=== PATIENT | female | born 1940 | race Caucasian/White ===

== ENCOUNTER 2017-09-22 12:08 | Emergency (ER) | payer MEDICARE, OTHER ==
[2017-09-22 12:25] VITALS: BP 155/86
[2017-09-22] MEDS ORDERED: Bacitracin Oint 1 GM U/D Packet TOP ONE (13:05)
--- NOTE | 2017-09-22 13:08 | EDM.PDOC ---
ED HPI GENERAL MEDICAL PROBLEM - General Chief Complaint: Upper Extremity Injury/Pain Stated Complaint: INFECTION ON RIGHT HAND POINTER FINGER Time Seen by Provider: 09/22/17 12:37 Source of Information: Reports: Patient History Limitations: Reports: No Limitations - History of Present Illness INITIAL COMMENTS - FREE TEXT/NARRATIVE: 77 yo female presents to ER with abscess of distill right finger. She was seen in clinic 3 days ago placed on Keflex and has worsened. afebrile. generally feeling well Right Hand Pain Score (Numeric/FACES): 9 - Related Data Allergies Allergy/AdvReac Type Severity Reaction Status Date / Time cat pelt standardized Allergy Sneezing Verified 10/22/15 23:09 allergenic ex [Cat Pelt Std Extract] dextrose [From Metamucil] Allergy Itching Verified 10/23/15 01:41 morphine Allergy Nausea Verified 12/31/15 08:25 polyethylene glycol 3350 Allergy Itching Verified 10/23/15 01:41 [From Miralax] psyllium husk Allergy Itching Verified 10/23/15 01:41 [From Metamucil] psyllium seed Allergy Itching Verified 10/23/15 01:41 [From Metamucil] sucrose [From Metamucil] Allergy Itching Verified 10/23/15 01:41 sulfamethizole Allergy Anxiety Verified 10/22/15 23:09 tramadol Allergy Other Verified 10/23/15 01:41 Home Meds: Home Meds Atenolol 25 mg PO DAILY 10/22/15 [History] Calcium Carbonate [Calcium] 600 mg PO DAILY 10/22/15 [History] Hydrocodone/Acetaminophen [Hydrocodon-Acetaminophn 10-325] 1 tab PO TID [History] Ipratropium [place] 1 dose NASBOTH BID PRN 10/22/15 [History] Levothyroxine Sodium [Synthroid] 137 mcg PO DAILY 10/22/15 [History] Omeprazole 40 mg PO ACBREAKFAST 10/22/15 [History] Potassium Chloride [Klor-Con 8] 10 meq PO DAILY PRN 10/22/15 [History] amLODIPine [Norvasc] 10 mg PO DAILY 10/22/15 [History] atorvaSTATin [Lipitor] 80 mg PO BEDTIME 10/22/15 [History] flavoxATE [flavoxATE HCl] 100 mg PO QID PRN 10/22/15 [History] Cyclobenzaprine [Flexeril] 10 mg PO TID PRN 12/31/15 [History] Clobetasol Propionate 1 strip TP DAILY 09/04/17 [History] Clobetasol [Clobetasol 0.05%] 1 strip TOP BID 09/04/17 [History] Furosemide [Lasix] 20 mg PO DAILY PRN 09/04/17 [History] Hydrochlorothiazide 12.5 ng PO DAILY 09/04/17 [History] Mag Hydrox/Al Hydrox/Simeth [Maalox Maximum Strength Susp] 30 ml PO Q2H PRN 02/12 [History] Magnesium Hydroxide [Milk of Magnesia] 30 ml PO DAILY PRN 09/04/17 [History] Naproxen [Naprosyn] 500 mg PO BID 09/04/17 [History] Nystatin 1 strip TOP QID 09/04/17 [History] Ondansetron HCl [Ondansetron] 4 mg PO Q8H PRN 09/04/17 [History] buPROPion [Wellbutrin SR] 150 mg PO BID 09/04/17 [History] Past Medical History HEENT History: Reports: Impaired Vision Cardiovascular History: Reports: High Cholesterol, Hypertension Other Cardiovascular History: Peripheral edema Respiratory History: Reports: Other (See Below) Other Respiratory History: 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, 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 Genitourinary History: Reports: Chronic Renal Insuffiency, Other (See Below) Other Genitourinary History: Chronic Kidney disease stage II 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: Fibroids, Musculoskeletal History: Reports: Back Pain, Chronic, Neck Pain, Chronic, Osteoarthritis, Other (See Below) Other Musculoskeletal History: right knee pain Psychiatric History: Reports: Addiction, Depression Endocrine/Metabolic History: Reports: Hypothyroidism, Vitamin D Deficiency Hematologic History: Reports: Blood Transfusion(s) - Infectious Disease History Infectious Disease History: Reports: Chicken Pox, Measles, Mumps - Past Surgical History Musculoskeletal Surgical History: Reports: Hip Replacement, Other (See Below) Social & Family History - Family History Family Medical History: Unobtainable - Tobacco Use Smoking Status *Q: Never Smoker - Caffeine Use Caffeine Use: Reports: Coffee - Recreational Drug Use Recreational Drug Use: No Review of Systems - Review of Systems Review Of Systems: See Below Constitutional: Denies: Chills, Fever Respiratory: Denies: Shortness of Breath, Wheezing Cardiovascular: Denies: Chest Pain ED EXAM, GENERAL - Physical Exam Exam: See Below Exam Limited By: No Limitations General Appearance: Alert, WD/WN, No Apparent Distress Respiratory/Chest: No Respiratory Distress Extremities: Other (right distil index finger purulent abscess at base of nail moderate edema, moderate erythema very painful) ED TRAUMA EXTREMITY PROCEDURES - I&D Site: distal right index Skin Prep: Chlorhexidine (Hibiciens) Local Anesthesia: Lidocaine: 1% Plain (digital block) Local Anesthetic Volume: 5cc Area Incised With: 11 Blade Drainage: Purulent, Bloody, Moderate Amount Probed to Break Up Loculations: Yes Packed With: None Sterile Dressing: Adhesive Dressing Complications: No Course - Vital Signs Last Recorded V/S: Last Vital Signs Temp 37.5 C 09/22/17 12:33 Pulse 121 H 09/22/17 12:33 Resp 16 09/22/17 12:33 BP 155/86 H 09/22/17 12:33 Pulse Ox 95 09/22/17 12:33 - Orders/Labs/Meds Meds: Medications Discontinued Medications Generic Name Dose Route Start Last Admin Trade Name Freq PRN Reason Stop Dose Admin Bacitracin 1 dose 09/22/17 13:05 Bacitracin Oint 1 Gm TOP 09/22/17 13:06 ONETIME ONE Lidocaine HCl 5 ml 09/22/17 13:04 Xylocaine-Mpf 1% INJECT 09/22/17 13:05 ONETIME ONE - Re-Assessments/Exams Free Text/Narrative Re-Assessment/Exam: 09/22/17 13:35 tolerated I+D well. will stop clindamycin because of nausea and diarrhea. start Augmentin 875 twice daily for 7 days. follow-up as needed with primary care Departure - Departure Time of Disposition: 13:36 Disposition: Home, Self-Care 01 Condition: Good Clinical Impression: Abscess of finger of right hand - Discharge Information Referrals: Will Cox NP [Primary Care Provider] - Forms: ED Department Discharge Additional Instructions: stop clindamycin and start Augmentin 875 twice daily for 7 days Ibuprofen 600-800 mg every 6 hours as needed for pain ice for pain relief keep dressing in place until tomorrow then soak in warm soapy water and pat dry follow-up with primary care for wound check later this week if not improving
== END 2017-09-22 13:53 | disposition home or self-care (01) ==
LOC: JP.ED 12:08
DX: L02.511 Cutaneous abscess of right hand (principal); E78.00 Pure hypercholesterolemia, unspecified; E03.9 Hypothyroidism, unspecified; I12.9 Hypertensive chronic kidney disease with stage 1 through stage 4 chronic kidney disease, or unspecified chronic kidney disease; N18.9 Chronic kidney disease, unspecified; Z79.899 Other long term (current) drug therapy; Z88.5 Allergy status to narcotic agent; Z88.8 Allergy status to other drugs, medicaments and biological substances
CPT/HCPCS: 26010; 99283-25

== ENCOUNTER 2017-11-07 07:40 | Day surgery (SDC) | payer MEDICARE, OTHER ==
[2017-11-07] MEDS ORDERED: Sodium Chloride 0.9% 1,000 ML IV SCH (08:00)
[2017-11-07] MEDS ORDERED: ceFAZolin 2 GM in Premix Bag 1 BAG IV ONE (08:30)
[2017-11-07] MEDS ORDERED: Propofol 200 MG/20 ML SDV ONE (09:21)
[2017-11-07] MEDS ORDERED: fentaNYL 100 MCG/2 ML SDV ONE (09:22)
--- NOTE | 2017-11-07 10:57 | CR ---
CHEST: Portable CLINICAL HISTORY:Catheter insertion COMPARISON:CT 2017 FINDINGS: There is a left subclavian catheter in place. The tip is in the superior vena cava atrial junction. There is no evidence of pneumothorax. The there is a cyst related to a masslike density in the right perihilar region posteriorly with some central calcification. This is unchanged from prior study and is likely granulomatous in origin. IMPRESSION: Left subclavian catheter in good position No evidence of pneumothorax Persistent right perihilar density similar to the 2017. This is likely granulomatous
[2017-11-07] MEDS ORDERED: Vancomycin 1.3 GM in Sodium Chloride 0.9% 250 ML IV ONE (11:00)
--- NOTE | 2017-11-07 12:20 | OR ---
DATE OF PROCEDURE: 11/07/2017 PROCEDURE: Placement of single-lumen catheter. COMPLICATION: None. STEMHOLE BORER AND TOPPER: None. ANESTHESIA: MAC. INDICATIONS: Requirement for mcfp antibiotic. RISKS: Risks, benefits, alternatives, and limitations including, but not limited to infection, bleeding, and pneumothorax were explained the patient, who wished to proceed. PROCEDURE IN DETAIL: The patient was placed in supine position. The left subclavian vein was accessed on the first pass using a micropuncture kit. This was then exchanged for a 35,000th wire after anesthetizing with lidocaine and subsequent dilation. This was able to be passed without difficulty. Dark blood return was noted. No air. This was then sutured into place. Dressings were applied. Of note, sterile gown, gloves, and other standard equipments were used during this procedure. Constantine Orellana MD /[id number]
[2017-11-07 13:18] VITALS: BP 122/58
== END 2017-11-07 12:50 | disposition home or self-care (01) ==
LOC: JP.SDS 07:40
PROVIDERS: ATTEND Surgery
DX: B99.9 Unspecified infectious disease (principal)
CPT/HCPCS: 36415; 36558; 71045; 82550; 82565; J1642; J2704; J3010; J3370; J7030; J7050; C1894

== ENCOUNTER 2018-08-24 06:09 | Inpatient (IN) | payer MEDICARE ==
[2018-08-24] MEDS ORDERED: Acetaminophen 500 MG Tab PO ONE (06:15)
[2018-08-24] MEDS ORDERED: Gabapentin 300 MG Cap PO ONE (06:15)
[2018-08-24] MEDS ORDERED: Scopolamine 1.5 MG Transdermal Patch TOP SCH (06:15)
[2018-08-24] MEDS ORDERED: Lactated Ringers 1,000 ML IV SCH (06:30)
[2018-08-24] MEDS: Nozin Nasal Sanitizer NASBOTH SCH ×3 (06:32→21:07)
[2018-08-24] MEDS ORDERED: Povidone-Iodine 10% Soln 118.25 ML Bottle ONE (06:43)
[2018-08-24] MEDS ORDERED: fentaNYL 100 MCG/2 ML SDV ONE ×2 (07:18→10:09)
[2018-08-24] MEDS ORDERED: Propofol 200 MG/20 ML SDV ONE ×2 (07:18→09:01)
[2018-08-24] MEDS ORDERED: Midazolam 1 MG/ML 2 ML SDV ONE ×2 (07:18→09:19)
[2018-08-24] MEDS ORDERED: ceFAZolin 2 GM in Premix Bag 1 BAG IV ONE (07:30)
[2018-08-24] MEDS ORDERED: ePHEDrine 50 MG/ML SDV ONE (08:18)
[2018-08-24] MEDS ORDERED: Lactated Ringers 1,000 ML ONE (10:15)
[2018-08-24] MEDS ORDERED: ceFAZolin 1 GM in Sodium Chloride 0.9% 50 ML IV SCH (10:45)
[2018-08-24] MEDS ORDERED: HYDROXYZINE PAMOATE PO PRN ×2 (10:48→12:15)
[2018-08-24] MEDS ORDERED: Magnesium Hydroxide 400 MG/5 ML Susp 30 ML Cup PO PRN (10:48)
[2018-08-24] MEDS ORDERED: Aluminum Hydroxide/Magnesium Hydroxide/Simethicone Susp 30 ML Cup PO PRN (10:48)
[2018-08-24] MEDS ORDERED: FLAVOXATE 100 MG PO PRN (10:48)
[2018-08-24] MEDS ORDERED: FLAVOXATE HCL 100 MG PO PRN (12:15)
[2018-08-24] MEDS: Morphine 2 MG/ML Syringe IVPUSH PRN ×4 (12:20→21:08)
[2018-08-24] MEDS: Ondansetron 4 MG Tab.DIS PO PRN ×2 (12:27→21:08)
[2018-08-24] MEDS: Acetaminophen/HYDROcodone 325-5 MG Tab PO PRN ×4 (12:37→22:33)
[2018-08-24] MEDS ORDERED: fentaNYL/Normal Saline 600 MCG/30 ML PCA Vial IV PRN (12:47)
--- NOTE | 2018-08-24 13:21 | CR ---
Knee 1V or 2V Rt CLINICAL HISTORY: Postop FINDINGS: Patient is status post recent placement of total knee arthroplasty. Components appear well seated. Patient has had previous internal fixation of the left the mid femoral fracture Impression: Recent placement of a total knee arthroplasty
[2018-08-24] MEDS: fentaNYL 100 MCG/2 ML SDV IVPUSH PRN ×2 (13:23→19:25)
[2018-08-24] MEDS: ceFAZolin 1 GM in Premix Bag 1 BAG IV SCH ×2 (14:40→21:45)
[2018-08-24] MEDS: Sodium Chloride 0.9% 1,000 ML IV SCH ×2 (14:45→23:04)
[2018-08-24] MEDS ORDERED: Non-Formulary Medication 1 Each (Atorvastatin [Lipitor] 80 MG) PO SCH ×2 (21:00)
[2018-08-24] MEDS ORDERED: amLODIPine 10 MG Tab PO SCH (21:00)
[2018-08-24] MEDS ORDERED: buPROPion 150 MG Tab.SR PO SCH (21:00)
[2018-08-24] MEDS ORDERED: Nozin Nasal Sanitizer NASBOTH SCH (21:00)
[2018-08-24] MEDS: buPROPion 150 MG Tab.SR PO SCH (21:08)
[2018-08-24] MEDS: atorvaSTATin 20 MG Tab PO SCH (21:08)
[2018-08-24] MEDS: amLODIPine 10 MG Tab PO SCH (21:39)
[2018-08-24] MEDS: hydrOXYzine HCl 25 MG Tab PO PRN (21:51)
[2018-08-24] MEDS ORDERED: Haloperidol Lactate 5 MG/ML SDV IVPUSH ONE (22:19)
[2018-08-25] MEDS: fentaNYL 100 MCG/2 ML SDV IVPUSH PRN ×2 (01:30→07:32)
[2018-08-25] MEDS: Acetaminophen/HYDROcodone 325-5 MG Tab PO PRN (05:54)
[2018-08-25] MEDS: ceFAZolin 1 GM in Premix Bag 1 BAG IV SCH ×2 (05:55→15:08)
[2018-08-25] MEDS: Sodium Chloride 0.9% 1,000 ML IV SCH (07:25)
[2018-08-25] MEDS: Acetaminophen/oxyCODONE 325-5 MG Tab PO PRN ×4 (07:26→21:48)
[2018-08-25] MEDS ORDERED: Non-Formulary Medication 1 Each (Omeprazole [Omeprazole] 40 MG) PO SCH ×2 (07:30)
[2018-08-25] MEDS: Cyclobenzaprine 10 MG Tab PO PRN (07:33)
[2018-08-25] MEDS: Pantoprazole 40 MG Tab.CR PO SCH (07:36)
[2018-08-25] MEDS ORDERED: Atenolol 25 MG Tab PO SCH (09:00)
[2018-08-25] MEDS ORDERED: Enoxaparin 30 MG/0.3 ML Syringe SUBCUT SCH (09:00)
[2018-08-25] MEDS ORDERED: Hydrochlorothiazide 12.5 MG Cap PO SCH (09:00)
[2018-08-25] MEDS ORDERED: Non-Formulary Medication 1 Each (Levothyroxine Sodium [Synthroid] 137 MCG) PO SCH ×2 (09:00)
[2018-08-25] MEDS: Ondansetron 4 MG Tab.DIS PO PRN ×2 (09:10→23:40)
[2018-08-25] MEDS: Nozin Nasal Sanitizer NASBOTH SCH ×2 (09:44→20:13)
--- NOTE | 2018-08-25 10:15 | PCM.SURGPN ---
- General Info Date of Service: 08/25/18 Date of Surgery/Procedure: 08/24/18 POD#: 1 Post-Op Diagnosis: S/P right TKA Admission Diagnosis/Problem: Osteoarthritis - Review of Systems General: Reports: No Symptoms HEENT: Reports: No Symptoms Pulmonary: Reports: No Symptoms Cardiovascular: Reports: No Symptoms Systems Review Comment:: Confused and disoriented last night, much improved this am. Pain fairly well controlled, will likely be difficult to manage. - Patient Data Vitals - Most Recent: Last Vital Signs Temp 37.1 C 08/25/18 07:44 Pulse 73 08/25/18 07:44 Resp 16 08/25/18 07:44 BP 129/55 L 08/25/18 07:44 Pulse Ox 93 L 08/25/18 07:44 Weight - Most Recent: 64.773 kg I&O - Last 24 Hours: Intake & Output 08/24/18 08/25/18 08/25/18 22:59 06:59 14:59 Intake Total 2000 1407 Output Total 550 800 Balance 1451 607 Lab Results Last 24 Hrs: Laboratory Results - last 24 hr 08/25/18 Range/Units 05:00 WBC 8.3 (4.5-11.0) K/uL RBC 3.86 (3.30-5.50) M/uL Hgb 9.4 L D (12.0-15.0) g/dL Hct 30.1 L (36.0-48.0) % MCV 78 L (80-98) fL MCH 24 L (27-31) pg MCHC 31 L (32-36) % Plt Count 220 (150-400) K/uL Med Orders - Current: Current Medications Acetaminophen (Tylenol) 650 mg PO Q4H PRN PRN Reason: Pain/Fever Hydrocodone Bitart/Acetaminophen ([place] 325-5 Mg) 1 tab PO Q3H PRN PRN Reason: Pain (mild 1-3) Last Admin: 08/25/18 05:54 Dose: 1 tab Al Hydroxide/Mg Hydroxide (Mag-Al Plus) 30 ml PO Q2H PRN PRN Reason: Indigestion Amlodipine Besylate (Norvasc) 10 mg PO BEDTIME [facility] Last Admin: 08/24/18 21:39 Dose: 10 mg Atenolol (Tenormin) 25 mg PO DAILY [facility] Atorvastatin Calcium (Lipitor) 80 mg PO BEDTIME [facility] Last Admin: 08/24/18 21:08 Dose: 80 mg Bandage/Support Products ( Nasal Penciller) 1 applic NASBOTH BID [facility] Stop: 08/31/18 21:01 Last Admin: 08/25/18 09:44 Dose: 1 swab Bupropion HCl (Wellbutrin Sr) 150 mg PO BID [facility] Last Admin: 08/24/18 21:08 Dose: 150 mg Cyclobenzaprine HCl (Flexeril) 5 mg PO TID PRN PRN Reason: Spasms Last Admin: 08/25/18 07:33 Dose: 5 mg Enoxaparin Sodium (Lovenox) 30 mg SUBCUT DAILY [facility] Fentanyl (Sublimaze) 50 mcg IVPUSH Q6H PRN PRN Reason: Pain (severe 7-10) Last Admin: 08/25/18 07:32 Dose: 50 mcg Fentanyl Citrate (Fentanyl In Ns 20 Mcg/Ml 30 Ml Plastic Parts Fabricator) 0 mcg IV ASDIRECTED PRN; Protocol PRN Reason: Pain Flavoxate HCl (Flavoxate Hcl) 100 mg PO QID PRN PRN Reason: PAIN Hydrochlorothiazide (Hydrochlorothiazide) 12.5 mg PO DAILY [facility] Hydroxyzine HCl (Atarax) 25 mg PO QID PRN PRN Reason: ITCH Last Admin: 08/24/18 21:51 Dose: 25 mg Lactated Ringer's (Ringers, Lactated) 1,000 mls @ 75 mls/hr IV ASDIRECTED [facility] Last Admin: 08/24/18 07:29 Dose: 75 mls/hr Sodium Chloride (Normal Saline) 1,000 mls @ 125 mls/hr IV ASDIRECTED [facility] Last Admin: 08/25/18 07:25 Dose: 125 mls/hr Cefazolin Sodium/Dextrose 1 gm (/ Premix) 50 mls @ 100 mls/hr IV Q8H [facility] Stop: 08/25/18 14:59 Last Admin: 08/25/18 05:55 Dose: 100 mls/hr Levothyroxine Sodium 112 mcg/ (Levothyroxine Sodium 25 mcg) 137 mcg PO ACBREAKFAST [facility] Last Admin: 08/25/18 07:35 Dose: 137 mcg Magnesium Hydroxide (Milk Of Magnesia) 30 ml PO DAILY PRN PRN Reason: Constipation Morphine Sulfate (Morphine) 2 mg IVPUSH Q1H PRN PRN Reason: Pain (severe 7-10) Last Admin: 08/24/18 21:08 Dose: 2 mg Ondansetron HCl (Zofran Odt) 4 mg PO Q8H PRN PRN Reason: Nausea Last Admin: 08/25/18 09:10 Dose: 4 mg Oxycodone/Acetaminophen (Percocet 325-5 Mg) 0 tab PO Q6H PRN PRN Reason: Pain Last Admin: 08/25/18 09:38 Dose: 2 tab Pantoprazole Sodium (Protonix) 40 mg PO ACBREAKFAST [facility] Last Admin: 08/25/18 07:36 Dose: 40 mg Scopolamine (Transderm-Scop) 1.5 mg TOP Q72H [facility] Stop: 08/27/18 06:00 Last Admin: 08/24/18 06:31 Dose: 1.5 mg Discontinued Medications Acetaminophen (Tylenol Extra Strength) 1,000 mg PO ONETIME ONE Stop: 08/24/18 06:16 Last Admin: 08/24/18 06:32 Dose: 1,000 mg Amlodipine Besylate (Norvasc) 10 mg PO BEDTIME [facility] Atenolol (Tenormin) 25 mg PO DAILY [facility] Bandage/Support Products ( Nasal Penciller) 1 applic NASBOTH BID [facility] Last Admin: 08/24/18 12:44 Dose: Not Given Bandage/Support Products ( Nasal Penciller) 1 applic NASBOTH BID [facility] Stop: 08/31/18 21:01 Bupropion HCl (Wellbutrin Sr) 150 mg PO BID [facility] Enoxaparin Sodium (Lovenox) 30 mg SUBCUT DAILY [facility] Ephedrine Sulfate (Ephedrine Sulfate) Confirm Administered Dose 50 mg .ROUTE .STK-MED ONE Stop: 08/24/18 08:19 Fentanyl (Sublimaze) Confirm Administered Dose 100 mcg .ROUTE .STK-MED ONE Stop: 08/24/18 07:19 Fentanyl (Sublimaze) Confirm Administered Dose 100 mcg .ROUTE .STK-MED ONE Stop: 08/24/18 10:10 Gabapentin (Neurontin) 300 mg PO ONETIME ONE Stop: 08/24/18 06:16 Last Admin: 08/24/18 06:31 Dose: 300 mg Haloperidol Lactate (Haldol) 2 mg IVPUSH ONETIME ONE Stop: 08/24/18 22:20 Last Admin: 08/24/18 22:33 Dose: 2 mg Hydrochlorothiazide (Hydrochlorothiazide) 12.5 mg PO DAILY [facility] Cefazolin Sodium/Dextrose 2 gm (/ Premix) 50 mls @ 100 mls/hr IV ONETIME ONE Stop: 08/24/18 07:59 Last Admin: 08/24/18 07:37 Dose: 100 mls/hr Lactated Ringer's (Ringers, Lactated) Confirm Administered Dose 1,000 mls @ as directed .ROUTE .STK-MED ONE Stop: 08/24/18 10:16 Cefazolin Sodium 1 gm/ Sodium (Chloride) 50 mls @ 200 mls/hr IV Q8H [facility] Stop: 08/25/18 10:59 Last Admin: 08/24/18 14:35 Dose: Not Given Midazolam HCl (Versed 1 Mg/Ml) Confirm Administered Dose 2 mg .ROUTE .STK-MED ONE Stop: 08/24/18 07:19 Midazolam HCl (Versed 1 Mg/Ml) Confirm Administered Dose 2 mg .ROUTE .STK-MED ONE Stop: 08/24/18 09:20 Non-Formulary Medication (Atorvastatin [Lipitor]) 80 mg PO BEDTIME [facility] Non-Formulary Medication (Flavoxate [Flavoxate Hcl]) 100 mg PO QID PRN PRN Reason: Pain Non-Formulary Medication (Hydroxyzine Pamoate [Vistaril]) 1 cap PO QID PRN PRN Reason: Itching Non-Formulary Medication (Levothyroxine Sodium [Synthroid]) 137 mcg PO DAILY [facility] Non-Formulary Medication (Omeprazole [Omeprazole]) 40 mg PO ACBREAKFAST [facility] Flavoxate Hcl 100 Mg 100 mg PO QID PRN PRN Reason: Pain Povidone Iodine (Betadine 10% Soln) Confirm Administered Dose 1 ml .ROUTE .STK- MED ONE Stop: 08/24/18 06:44 Last Admin: 08/24/18 10:00 Dose: 1 ml Propofol (Diprivan 20 Ml) Confirm Administered Dose 200 mg .ROUTE .STK-MED ONE Stop: 08/24/18 07:19 Propofol (Diprivan 20 Ml) Confirm Administered Dose 200 mg .ROUTE .STK-MED ONE Stop: 08/24/18 09:02 - Exam Wound/Incisions: Dressing Dry and Intact General: Alert, Oriented, Cooperative HEENT: Pupils Equal Neck: Supple Lungs: Clear to Auscultation, Normal Respiratory Effort Cardiovascular: Regular Rate, Regular Rhythm Neurological: No New Focal Deficit Psy/Mental Status: Alert, Normal Affect, Normal Mood Physical Findings Comment:: Lucid this am. - Problem List & Annotations (1) Anemia due to acute blood loss SNOMED Code(s): 722266732 Code(s): D62 - ACUTE POSTHEMORRHAGIC ANEMIA Status: Acute Current Visit: Yes Annotation/Comment:: secondary to surgical procedure (2) Status post total right knee replacement SNOMED Code(s): 3912980031808 Code(s): Z96.651 - PRESENCE OF RIGHT ARTIFICIAL KNEE JOINT Status: Acute Current Visit: Yes (3) At risk for falls SNOMED Code(s): 631578793 Code(s): Z91.81 - HISTORY OF FALLING Status: Chronic Current Visit: No (4) Primary osteoarthritis of right knee SNOMED Code(s): 057810126342737, 476904191932762 Code(s): M17.11 - UNILATERAL PRIMARY OSTEOARTHRITIS, RIGHT KNEE Status: Chronic Current Visit: No (5) Acute narcotic intoxication with delirium SNOMED Code(s): 794957613, 560964485 Code(s): F11.921 - OPIOID USE, UNSPECIFIED WITH INTOXICATION DELIRIUM Status: Acute Current Visit: Yes - Problem List Review Problem List Initiated/Reviewed/Updated: Yes - My Orders Last 24 Hours: Active Orders 24 hr Category Date Time Status Patient Status [ADT] Routine ADT 08/24/18 10:43 Active Ambulate [RC] PER UNIT ROUTINE Care 08/24/18 10:43 Active Antiembolic Devices [RC] .Routine Care 08/24/18 10:43 Active Head of Bed Elevation [RC] ASDIRECTED Care 08/24/18 10:43 Active Intake and Output [RC] PER UNIT ROUTINE Care 08/24/18 10:43 Active Neurovascular Check [RC] BID Care 08/24/18 10:43 Active Notify Provider Vital Signs [RC] ASDIRECTED Care 08/24/18 10:43 Active Oxygen Therapy [RC] PRN Care 08/24/18 10:43 Active Pneumonia Education [RC] UPON Care 08/24/18 10:43 Active Pulse Oximetry [RC] INTERMITTENT Care 08/24/18 10:43 Active RT Incentive Spirometry [RC] Q1HWA Care 08/24/18 10:43 Active Up to Chair [RC] QID Care 08/24/18 10:43 Active VTE/DVT Education [RC] Click to Edit Care 08/24/18 10:43 Active Vital Signs [RC] Q4H Care 08/24/18 10:43 Active Wound Care [RC] Q12H Care 08/24/18 10:43 Active Consult to Occupational Therapy [OT Evaluation and Cons 08/24/18 10:52 Active Treatment] [CONS] Routine Consult to Physical Therapy [PT Evaluation and Cons 08/24/18 10:53 Active Treatment] [CONS] Routine PT Evaluation and Treatment [CONS] Routine Cons 08/24/18 10:43 Active Regular Diet [DIET] Diet 08/24/18 Dinner Active CBC W/O DIFF,HEMOGRAM [HEME] AM Lab 08/26/18 05:11 Ordered COMPREHENSIVE METABOLIC PN,CMP [CHEM] AM Lab 08/26/18 05:11 Ordered Acetaminophen [Tylenol] Med 08/24/18 10:43 Active 650 mg PO Q4H PRN Acetaminophen/HYDROcodone [[place] 325-5 MG] Med 08/24/18 10:43 Active 1 tab PO Q3H PRN Acetaminophen/oxyCODONE [Percocet 325-5 MG] Med 08/24/18 10:50 Active See Dose Instructions PO Q6H PRN Alum Hydrox/Mag Hydrox/Simeth [Mag-Al Plus] Med 08/24/18 10:48 Active 30 ml PO Q2H PRN Atenolol [Tenormin] Med 08/25/18 09:00 Active 25 mg PO DAILY Cyclobenzaprine [Flexeril] Med 08/24/18 10:48 Active 5 mg PO TID PRN Enoxaparin [Lovenox] Med 08/25/18 09:00 Active 30 mg SUBCUT DAILY Levothyroxine Med 08/25/18 07:30 Active 137 mcg PO ACBREAKFAST Magnesium Hydroxide [Milk of Magnesia] Med 08/24/18 10:48 Active 30 ml PO DAILY PRN Morphine Med 08/24/18 10:55 Active 2 mg IVPUSH Q1H PRN Nozin [ Nasal Penciller] Med 08/24/18 21:00 Active 1 applic NASBOTH BID Ondansetron [Zofran ODT] Med 08/24/18 10:48 Active 4 mg PO Q8H PRN Pantoprazole [ProTONIX] Med 08/25/18 07:30 Active 40 mg PO ACBREAKFAST Sodium Chloride 0.9% [Normal Saline] 1,000 ml Med 08/24/18 10:45 Active IV ASDIRECTED amLODIPine [Norvasc] Med 08/24/18 21:00 Active 10 mg PO BEDTIME atorvaSTATin [Lipitor] Med 08/24/18 21:00 Active 80 mg PO BEDTIME buPROPion [Wellbutrin SR] Med 08/24/18 21:00 Active 150 mg PO BID ceFAZolin [Ancef] 1 gm Med 08/24/18 14:30 Active Premix Bag 1 bag IV Q8H fentaNYL [Sublimaze] Med 08/24/18 12:37 Active 50 mcg IVPUSH Q6H PRN fentaNYL/Normal Saline [fentaNYL in NS 20 MCG/ML 30 ML Med 08/24/18 12:47 Active CONCRETE PILE [employer]IVER OPERATOR] 0 mcg IV ASDIRECTED PRN flavoxATE [flavoxATE HCl] Med 08/24/18 17:29 Active 100 mg PO QID PRN hydrOXYzine HCl [Atarax] Med 08/24/18 13:25 Active 25 mg PO QID PRN hydroCHLOROthiazide Med 08/25/18 09:00 Active 12.5 mg PO DAILY Antiembolic Hose [OM.PC] Per Unit Routine Oth 08/24/18 10:43 Ordered DME for Inpatients [OM.PC] Routine Oth 08/24/18 10:43 Ordered DVT/VTE Prophylaxis Reflex [OM.PC] Routine Oth 08/24/18 10:43 Ordered Ice Therapy [OM.PC] Per Unit Routine Oth 08/24/18 10:43 Ordered Oral Care [OM.PC] Routine Oth 08/24/18 10:43 Ordered Weight bearing status [OM.PC] Routine Oth 08/24/18 10:43 Ordered Resuscitation Status Routine Resus Stat 08/24/18 10:43 Ordered Medication Orders Acetaminophen (Tylenol) 650 mg PO Q4H PRN PRN Reason: Pain/Fever Hydrocodone Bitart/Acetaminophen ([place] 325-5 Mg) 1 tab PO Q3H PRN PRN Reason: Pain (mild 1-3) Last Admin: 08/25/18 05:54 Dose: 1 tab Admin: 08/24/18 22:33 Dose: 1 tab Admin: 08/24/18 19:23 Dose: 1 tab Admin: 08/24/18 15:52 Dose: 1 tab Admin: 08/24/18 12:37 Dose: 1 tab Al Hydroxide/Mg Hydroxide (Mag-Al Plus) 30 ml PO Q2H PRN PRN Reason: Indigestion Amlodipine Besylate (Norvasc) 10 mg PO BEDTIME [facility] Last Admin: 08/24/18 21:39 Dose: 10 mg Atenolol (Tenormin) 25 mg PO DAILY [facility] Atorvastatin Calcium (Lipitor) 80 mg PO BEDTIME [facility] Last Admin: 08/24/18 21:08 Dose: 80 mg Bandage/Support Products ( Nasal Penciller) 1 applic NASBOTH BID [facility] Stop: 08/31/18 21:01 Last Admin: 08/25/18 09:44 Dose: 1 swab Admin: 08/24/18 21:07 Dose: 1 swab Bupropion HCl (Wellbutrin Sr) 150 mg PO BID [facility] Last Admin: 08/24/18 21:08 Dose: 150 mg Cyclobenzaprine HCl (Flexeril) 5 mg PO TID PRN PRN Reason: Spasms Last Admin: 08/25/18 07:33 Dose: 5 mg Enoxaparin Sodium (Lovenox) 30 mg SUBCUT DAILY [facility] Fentanyl (Sublimaze) 50 mcg IVPUSH Q6H PRN PRN Reason: Pain (severe 7-10) Last Admin: 08/25/18 07:32 Dose: 50 mcg Admin: 08/25/18 01:30 Dose: 50 mcg Admin: 08/24/18 19:25 Dose: 50 mcg Admin: 08/24/18 13:23 Dose: 50 mcg Fentanyl Citrate (Fentanyl In Ns 20 Mcg/Ml 30 Ml [employer] Parts Fabricator) 0 mcg IV ASDIRECTED PRN; Protocol PRN Reason: Pain Flavoxate HCl (Flavoxate Hcl) 100 mg PO QID PRN PRN Reason: PAIN Hydrochlorothiazide (Hydrochlorothiazide) 12.5 mg PO DAILY [facility] Hydroxyzine HCl (Atarax) 25 mg PO QID PRN PRN Reason: ITCH Last Admin: 08/24/18 21:51 Dose: 25 mg Lactated Ringer's (Ringers, Lactated) 1,000 mls @ 75 mls/hr IV ASDIRECTED [facility] Last Admin: 08/24/18 07:29 Dose: 75 mls/hr Sodium Chloride (Normal Saline) 1,000 mls @ 125 mls/hr IV ASDIRECTED [facility] Last Admin: 08/25/18 07:25 Dose: 125 mls/hr Infusion: 08/25/18 07:04 Dose: 125 mls/hr Admin: 08/24/18 23:04 Dose: 125 mls/hr Infusion: 08/24/18 22:45 Dose: 125 mls/hr Admin: 08/24/18 14:45 Dose: 125 mls/hr Cefazolin Sodium/Dextrose 1 gm (/ Premix) 50 mls @ 100 mls/hr IV Q8H [facility] Stop: 08/25/18 14:59 Last Admin: 08/25/18 05:55 Dose: 100 mls/hr Infusion: 08/24/18 22:15 Dose: 100 mls/hr Admin: 08/24/18 21:45 Dose: 100 mls/hr Infusion: 08/24/18 15:10 Dose: 100 mls/hr Admin: 08/24/18 14:40 Dose: 100 mls/hr Levothyroxine Sodium 112 mcg/ (Levothyroxine Sodium 25 mcg) 137 mcg PO ACBREAKFAST [facility] Last Admin: 08/25/18 07:35 Dose: 137 mcg Magnesium Hydroxide (Milk Of Magnesia) 30 ml PO DAILY PRN PRN Reason: Constipation Morphine Sulfate (Morphine) 2 mg IVPUSH Q1H PRN PRN Reason: Pain (severe 7-10) Last Admin: 08/24/18 21:08 Dose: 2 mg Admin: 08/24/18 17:09 Dose: 2 mg Admin: 08/24/18 14:36 Dose: 2 mg Admin: 08/24/18 12:20 Dose: 2 mg Ondansetron HCl (Zofran Odt) 4 mg PO Q8H PRN PRN Reason: Nausea Last Admin: 08/25/18 09:10 Dose: 4 mg Admin: 08/24/18 21:08 Dose: 4 mg Admin: 08/24/18 12:27 Dose: 4 mg Oxycodone/Acetaminophen (Percocet 325-5 Mg) 0 tab PO Q6H PRN PRN Reason: Pain Last Admin: 08/25/18 09:38 Dose: 2 tab Pantoprazole Sodium (Protonix) 40 mg PO ACBREAKFAST [facility] Last Admin: 08/25/18 07:36 Dose: 40 mg Scopolamine (Transderm-Scop) 1.5 mg TOP Q72H [facility] Stop: 08/27/18 06:00 Last Admin: 08/24/18 06:31 Dose: 1.5 mg - Assessment Assessment (Free Text/Narrative):: Difficulty with pain control yesterday and became disoriented and somewhat combative last night. Treated with single dose of [place] this am. - Plan Plan (Free Text/Narrative):: Start PT/OT. Adjust meds as needed. Dressing change tomorrow. Watch H/H and check labs in am.
[2018-08-25] MEDS: Enoxaparin 30 MG/0.3 ML Syringe SUBCUT SCH (11:38)
[2018-08-25] MEDS: Hydrochlorothiazide 12.5 MG Cap PO SCH (11:39)
[2018-08-25] MEDS: Atenolol 25 MG Tab PO SCH (11:39)
[2018-08-25] MEDS: buPROPion 150 MG Tab.SR PO SCH ×2 (11:39→20:13)
[2018-08-25] MEDS: Docusate Sodium 100 MG Cap PO SCH (20:13)
[2018-08-25] MEDS: atorvaSTATin 20 MG Tab PO SCH (20:14)
[2018-08-25] MEDS: amLODIPine 10 MG Tab PO SCH (20:15)
[2018-08-25] MEDS: hydrOXYzine HCl 25 MG Tab PO PRN (21:49)
[2018-08-26] MEDS: Acetaminophen/oxyCODONE 325-5 MG Tab PO PRN ×3 (07:23→20:41)
[2018-08-26] MEDS: Pantoprazole 40 MG Tab.CR PO SCH (07:25)
[2018-08-26] MEDS: Cyclobenzaprine 10 MG Tab PO PRN (07:27)
[2018-08-26] MEDS: Docusate Sodium 100 MG Cap PO SCH ×2 (08:46→20:34)
[2018-08-26] MEDS: Hydrochlorothiazide 12.5 MG Cap PO SCH (08:46)
[2018-08-26] MEDS: Nozin Nasal Sanitizer NASBOTH SCH ×2 (08:47→20:34)
[2018-08-26] MEDS: buPROPion 150 MG Tab.SR PO SCH ×2 (08:47→20:36)
[2018-08-26] MEDS: Enoxaparin 30 MG/0.3 ML Syringe SUBCUT SCH (08:47)
[2018-08-26] MEDS: Atenolol 25 MG Tab PO SCH (08:48)
[2018-08-26] MEDS: Potassium Chloride 20 MEQ Tab.ER PO SCH ×2 (08:48→16:26)
--- NOTE | 2018-08-26 13:33 | OR ---
DATE OF PROCEDURE: 08/24/2018 PREOPERATIVE DIAGNOSIS: End-stage osteoarthritis, right knee, with valgus instability. POSTOPERATIVE DIAGNOSIS: End-stage osteoarthritis, right knee, with valgus instability. PROCEDURE: Right total knee arthroplasty using Feliz LCCK components with a size 3 stemmed tibia, size F short-stem femur, 20 mm constrained poly, and a 32-mm patella. SURGEON: Lokesh Hope MD ANESTHESIA: Spinal with sedation. INDICATIONS: Becca Tenorio is a 78-year-old female with history of progressive pain and deformity of her right knee over the past several years. She has significant valgus with valgus laxity. She has failed conservative treatment and has difficulty with activities of daily living and short distance walking. She now presents for right total knee arthroplasty. The risks, benefits, and potential complications of the procedure were discussed. DESCRIPTION OF PROCEDURE: After adequate anesthesia was obtained, the patient was placed supine with a tourniquet about the right upper thigh. The right leg was prepped and draped in a sterile fashion. Leg was exsanguinated and tourniquet inflated to 250 mmHg. A longitudinal incision was made midline over the patella and carried down through the subcutaneous tissues. Medial parapatellar arthrotomy was performed. Small effusion was present. Portion of the fat pad was excised. Examination reveals significant deformity with bone loss of the lateral tibial plateau. Intramedullary canal of the femur was entered due to her previous hip fracture and hardware in place, a long intramedullary guide was not utilized. Distal femoral cut was made. The femur was sized, and the distal femoral jig was then secured. Anterior, posterior, and chamfer cuts were then made. An intercondylar notch cut was then made for a constrained component. The trial femur was placed with good fit. Attention was then turned to the tibia. Intramedullary canal was drilled. Reamer was left in place, and the proximal cutting jig was secured removing approximately 2 mm from the lateral plateau. Remaining meniscus was excised. The tibia was sized to a 4 component. The posterior aspect of the patella was resected and sized to a 32 mm. Trial tibial component was placed with a 14-mm insert providing good balance and full extension. The trials were removed. The knee was then thoroughly irrigated with pulse lavage. Components were cemented in place and excess cement was removed. The knee was held in full extension with trial insert. The final polyethylene was inserted. On attempting to secure the polyethylene with a locking screw, it was discovered that the stem had become dislodged from the tibial tray and a small amount of bone cement was intervening preventing placement of the locking screw. Due to the significant stress placed on the tibial tray-polyethylene couple with the constrained polyethylene, decision was made to proceed with revision of this. Using a combination of osteotomes, the tibial component was removed along with the cement in the tibial metaphysis and the dislodged stem. The canal was reamed once again. The last reamer was left in place and the tibia was recut, removing just a few more millimeters. This was then downsized to a size-3 tibia. Offset stem was utilized and a trial was placed, which provided good coverage. This resulted in going up to a 20-mm polyethylene. tibial trial were removed. This was thoroughly irrigated. The new tibial stem and tray were cemented in place. Excess cement was removed. The knee was held in full extension with a trial insert. The 20-mm trial was then switched out for the polyethylene insert, and the locking screw was placed. and tightened with the torque wrench. The knee was taken through range of motion. It showed excellent extension and flexion easily to 125 degrees with good tracking of the patella. Knee was thoroughly irrigated with the pulse lavage and a dilute solution of Betadine. Knee was then closed with # 1 Ethibond in interrupted fashion, in the capsular layer 2-0 Vicryl and a running 3-0 Monocryl on the skin. Steri-Strips were applied. Light compressive dressing was then placed. The patient tolerated the procedure well. She was taken from the operating room in a stable condition. Lokesh Hope MD /[id number] JOHN
--- NOTE | 2018-08-26 15:50 | PCM.SURGPN ---
- General Info Date of Service: 08/26/18 Date of Surgery/Procedure: 08/23/18 POD#: 2 Post-Op Diagnosis: S/P right total knee arthroplasty Functional Status: Reports: Ambulating, Urinating - Review of Systems General: Reports: No Symptoms HEENT: Reports: No Symptoms Pulmonary: Reports: No Symptoms Cardiovascular: Reports: No Symptoms Gastrointestinal: Reports: No Symptoms Genitourinary: Reports: No Symptoms Skin: Reports: No Symptoms Systems Review Comment:: Much better night last night, up with PT and doing fairly well, still needing help with transfers in/out of bed and chairs. Pain reasonably well controlled with oral meds. - Patient Data Vitals - Most Recent: Last Vital Signs Temp 36.8 C 08/26/18 14:47 Pulse 75 08/26/18 14:47 Resp 18 08/26/18 14:47 BP 117/51 L 08/26/18 14:47 Pulse Ox 94 L 08/26/18 14:47 Weight - Most Recent: 64.773 kg I&O - Last 24 Hours: Intake & Output 08/26/18 08/26/18 08/26/18 06:59 14:59 22:59 Intake Total 640 Output Total 1999 250 50 Balance -1999 390 -50 Lab Results Last 24 Hrs: Laboratory Results - last 24 hr 08/26/18 08/26/18 Range/Units 05:11 05:11 WBC 8.9 (4.5-11.0) K/uL RBC 3.68 (3.30-5.50) M/uL Hgb 9.1 L (12.0-15.0) g/dL Hct 28.7 L (36.0-48.0) % MCV 78 L (80-98) fL MCH 25 L (27-31) pg MCHC 32 (32-36) % Plt Count 219 (150-400) K/uL Sodium 133 L (140-148) mmol/L Potassium 2.9 L* (3.6-5.2) mmol/L Chloride 98 L (100-108) mmol/L Carbon Dioxide 28 (21-32) mmol/L Anion Gap 9.9 (5.0-14.0) mmol/L BUN 11 D (7-18) mg/dL Creatinine 0.7 (0.6-1.0) mg/dL Est Cr Clr Drug Dosing 49.23 mL/min Estimated GFR (MDRD) > 60 (>60) Glucose 115 H (74-106) mg/dL Calcium 8.4 L (8.5-10.1) mg/dL Total Bilirubin 0.5 (0.2-1.0) mg/dL AST 23 (15-37) U/L ALT 21 (12-78) U/L Alkaline Phosphatase 66 (46-116) U/L Total Protein 5.7 L (6.4-8.2) g/dL Albumin 2.5 L (3.4-5.0) g/dL Globulin 3.2 (2.3-3.5) g/dL Albumin/Globulin Ratio 0.8 L (1.2-2.2) Med Orders - Current: Current Medications Acetaminophen (Tylenol) 650 mg PO Q4H PRN PRN Reason: Pain/Fever Hydrocodone Bitart/Acetaminophen ([place] 325-5 Mg) 1 tab PO Q3H PRN PRN Reason: Pain (mild 1-3) Last Admin: 08/25/18 05:54 Dose: 1 tab Al Hydroxide/Mg Hydroxide (Mag-Al Plus) 30 ml PO Q2H PRN PRN Reason: Indigestion Amlodipine Besylate (Norvasc) 10 mg PO BEDTIME [facility] Last Admin: 08/25/18 20:15 Dose: 10 mg Atenolol (Tenormin) 25 mg PO DAILY [facility] Last Admin: 08/26/18 08:48 Dose: 25 mg Atorvastatin Calcium (Lipitor) 80 mg PO BEDTIME [facility] Last Admin: 08/25/18 20:14 Dose: 80 mg Bandage/Support Products ( Nasal Pain Medicine Physician) 1 applic NASBOTH BID [facility] Stop: 08/31/18 21:01 Last Admin: 08/26/18 08:47 Dose: 1 swab Bupropion HCl (Wellbutrin Sr) 150 mg PO BID [facility] Last Admin: 08/26/18 08:47 Dose: 150 mg Cyclobenzaprine HCl (Flexeril) 5 mg PO TID PRN PRN Reason: Spasms Last Admin: 08/26/18 07:27 Dose: 5 mg Docusate Sodium (Colace) 100 mg PO BID [facility] Last Admin: 08/26/18 08:46 Dose: 100 mg Enoxaparin Sodium (Lovenox) 30 mg SUBCUT DAILY [facility] Last Admin: 08/26/18 08:47 Dose: 30 mg Fentanyl (Sublimaze) 50 mcg IVPUSH Q6H PRN PRN Reason: Pain (severe 7-10) Last Admin: 08/25/18 07:32 Dose: 50 mcg Fentanyl Citrate (Fentanyl In Ns 20 Mcg/Ml 30 Ml Election Supervisor) 0 mcg IV ASDIRECTED PRN; Protocol PRN Reason: Pain Flavoxate HCl (Flavoxate Hcl) 100 mg PO QID PRN PRN Reason: PAIN Hydrochlorothiazide (Hydrochlorothiazide) 12.5 mg PO DAILY [facility] Last Admin: 08/26/18 08:46 Dose: 12.5 mg Hydroxyzine HCl (Atarax) 25 mg PO QID PRN PRN Reason: ITCH Last Admin: 08/25/18 21:49 Dose: 25 mg Levothyroxine Sodium 112 mcg/ (Levothyroxine Sodium 25 mcg) 137 mcg PO ACBREAKFAST [facility] Last Admin: 08/26/18 07:24 Dose: 137 mcg Magnesium Hydroxide (Milk Of Magnesia) 30 ml PO DAILY PRN PRN Reason: Constipation Morphine Sulfate (Morphine) 2 mg IVPUSH Q1H PRN PRN Reason: Pain (severe 7-10) Last Admin: 08/24/18 21:08 Dose: 2 mg Ondansetron HCl (Zofran Odt) 4 mg PO Q8H PRN PRN Reason: Nausea Last Admin: 08/25/18 23:40 Dose: 4 mg Oxycodone/Acetaminophen (Percocet 325-5 Mg) 0 tab PO Q6H PRN PRN Reason: Pain Last Admin: 08/26/18 14:41 Dose: 1 tab Pantoprazole Sodium (Protonix) 40 mg PO ACBREAKFAST [facility] Last Admin: 08/26/18 07:25 Dose: 40 mg Potassium Chloride (Klor-Con M20) 20 meq PO BIDMEALS [facility] Last Admin: 08/26/18 08:48 Dose: 20 meq Scopolamine (Transderm-Scop) 1.5 mg TOP Q72H [facility] Stop: 08/27/18 06:00 Last Admin: 08/24/18 06:31 Dose: 1.5 mg Discontinued Medications Acetaminophen (Tylenol Extra Strength) 1,000 mg PO ONETIME ONE Stop: 08/24/18 06:16 Last Admin: 08/24/18 06:32 Dose: 1,000 mg Amlodipine Besylate (Norvasc) 10 mg PO BEDTIME [facility] Atenolol (Tenormin) 25 mg PO DAILY [facility] Bandage/Support Products ( Nasal Pain Medicine Physician) 1 applic NASBOTH BID [facility] Last Admin: 08/24/18 12:44 Dose: Not Given Bandage/Support Products ( Nasal Pain Medicine Physician) 1 applic NASBOTH BID [facility] Stop: 08/31/18 21:01 Bupropion HCl (Wellbutrin Sr) 150 mg PO BID [facility] Enoxaparin Sodium (Lovenox) 30 mg SUBCUT DAILY [facility] Ephedrine Sulfate (Ephedrine Sulfate) Confirm Administered Dose 50 mg .ROUTE .STK-MED ONE Stop: 08/24/18 08:19 Fentanyl (Sublimaze) Confirm Administered Dose 100 mcg .ROUTE .STK-MED ONE Stop: 08/24/18 07:19 Fentanyl (Sublimaze) Confirm Administered Dose 100 mcg .ROUTE .STK-MED ONE Stop: 08/24/18 10:10 Gabapentin (Neurontin) 300 mg PO ONETIME ONE Stop: 08/24/18 06:16 Last Admin: 08/24/18 06:31 Dose: 300 mg Haloperidol Lactate (Haldol) 2 mg IVPUSH ONETIME ONE Stop: 08/24/18 22:20 Last Admin: 08/24/18 22:33 Dose: 2 mg Hydrochlorothiazide (Hydrochlorothiazide) 12.5 mg PO DAILY [facility] Cefazolin Sodium/Dextrose 2 gm (/ Premix) 50 mls @ 100 mls/hr IV ONETIME ONE Stop: 08/24/18 07:59 Last Admin: 08/24/18 07:37 Dose: 100 mls/hr Lactated Ringer's (Ringers, Lactated) 1,000 mls @ 75 mls/hr IV ASDIRECTED [facility] Last Admin: 08/24/18 07:29 Dose: 75 mls/hr Lactated Ringer's (Ringers, Lactated) Confirm Administered Dose 1,000 mls @ as directed .ROUTE .STK-MED ONE Stop: 08/24/18 10:16 Cefazolin Sodium 1 gm/ Sodium (Chloride) 50 mls @ 200 mls/hr IV Q8H [facility] Stop: 08/25/18 10:59 Last Admin: 08/24/18 14:35 Dose: Not Given Sodium Chloride (Normal Saline) 1,000 mls @ 125 mls/hr IV ASDIRECTED [facility] Last Admin: 08/25/18 07:25 Dose: 125 mls/hr Cefazolin Sodium/Dextrose 1 gm (/ Premix) 50 mls @ 100 mls/hr IV Q8H [facility] Stop: 08/25/18 14:59 Last Admin: 08/25/18 15:08 Dose: 100 mls/hr Midazolam HCl (Versed 1 Mg/Ml) Confirm Administered Dose 2 mg .ROUTE .STK-MED ONE Stop: 08/24/18 07:19 Midazolam HCl (Versed 1 Mg/Ml) Confirm Administered Dose 2 mg .ROUTE .STK-MED ONE Stop: 08/24/18 09:20 Non-Formulary Medication (Atorvastatin [Lipitor]) 80 mg PO BEDTIME [facility] Non-Formulary Medication (Flavoxate [Flavoxate Hcl]) 100 mg PO QID PRN PRN Reason: Pain Non-Formulary Medication (Hydroxyzine Pamoate [Vistaril]) 1 cap PO QID PRN PRN Reason: Itching Non-Formulary Medication (Levothyroxine Sodium [Synthroid]) 137 mcg PO DAILY [facility] Non-Formulary Medication (Omeprazole [Omeprazole]) 40 mg PO ACBREAKFAST JOLANTA Flavoxate Hcl 100 Mg 100 mg PO QID PRN PRN Reason: Pain Povidone Iodine (Betadine 10% Soln) Confirm Administered Dose 1 ml .ROUTE .STK- MED ONE Stop: 08/24/18 06:44 Last Admin: 08/24/18 10:00 Dose: 1 ml Propofol (Diprivan 20 Ml) Confirm Administered Dose 200 mg .ROUTE .STK-MED ONE Stop: 08/24/18 07:19 Propofol (Diprivan 20 Ml) Confirm Administered Dose 200 mg .ROUTE .STK-MED ONE Stop: 08/24/18 09:02 - Exam Wound/Incisions: Healing Well General: Other (more alert and cooperative) HEENT: Pupils Equal Lungs: Clear to Auscultation, Normal Respiratory Effort Cardiovascular: Regular Rate, Regular Rhythm Skin: Warm, Dry, Intact Neurological: No New Focal Deficit - Problem List & Annotations (1) Anemia due to acute blood loss SNOMED Code(s): 640881342 Code(s): D62 - ACUTE POSTHEMORRHAGIC ANEMIA Status: Acute Current Visit: Yes Annotation/Comment:: secondary to surgical procedure (2) Status post total right knee replacement SNOMED Code(s): 4112448778009 Code(s): Z96.651 - PRESENCE OF RIGHT ARTIFICIAL KNEE JOINT Status: Acute Current Visit: Yes (3) At risk for falls SNOMED Code(s): 384257319 Code(s): Z91.81 - HISTORY OF FALLING Status: Chronic Current Visit: No (4) Primary osteoarthritis of right knee SNOMED Code(s): 918898098333441, 418648891072566 Code(s): M17.11 - UNILATERAL PRIMARY OSTEOARTHRITIS, RIGHT KNEE Status: Chronic Current Visit: No (5) Acute narcotic intoxication with delirium SNOMED Code(s): 376333724, 113207676 Code(s): F11.921 - OPIOID USE, UNSPECIFIED WITH INTOXICATION DELIRIUM Status: Acute Current Visit: Yes (6) Hypokalemia SNOMED Code(s): 75600420 Code(s): E87.6 - HYPOKALEMIA Status: Acute Current Visit: Yes - Problem List Review Problem List Initiated/Reviewed/Updated: Yes - My Orders Last 24 Hours: Active Orders 24 hr Category Date Time Status Docusate Sodium [Colace] Med 08/25/18 21:00 Active 100 mg PO BID Potassium Chloride [Klor-Con M20] Med 08/26/18 09:00 Active 20 meq PO BIDMEALS Convert IV to Saline Lock [OM.PC] Routine Oth 08/25/18 17:39 Ordered Medication Orders Acetaminophen (Tylenol) 650 mg PO Q4H PRN PRN Reason: Pain/Fever Hydrocodone Bitart/Acetaminophen ([place] 325-5 Mg) 1 tab PO Q3H PRN PRN Reason: Pain (mild 1-3) Last Admin: 08/25/18 05:54 Dose: 1 tab Admin: 08/24/18 22:33 Dose: 1 tab Admin: 08/24/18 19:23 Dose: 1 tab Admin: 08/24/18 15:52 Dose: 1 tab Admin: 08/24/18 12:37 Dose: 1 tab Al Hydroxide/Mg Hydroxide (Mag-Al Plus) 30 ml PO Q2H PRN PRN Reason: Indigestion Amlodipine Besylate (Norvasc) 10 mg PO BEDTIME [facility] Last Admin: 08/25/18 20:15 Dose: 10 mg Admin: 08/24/18 21:39 Dose: 10 mg Atenolol (Tenormin) 25 mg PO DAILY [facility] Last Admin: 08/26/18 08:48 Dose: 25 mg Admin: 08/25/18 11:39 Dose: 25 mg Atorvastatin Calcium (Lipitor) 80 mg PO BEDTIME [facility] Last Admin: 08/25/18 20:14 Dose: 80 mg Admin: 08/24/18 21:08 Dose: 80 mg Bandage/Support Products ( Nasal Pain Medicine Physician) 1 applic NASBOTH BID [facility] Stop: 08/31/18 21:01 Last Admin: 08/26/18 08:47 Dose: 1 swab Admin: 08/25/18 20:13 Dose: 1 swab Admin: 08/25/18 09:44 Dose: 1 swab Admin: 08/24/18 21:07 Dose: 1 swab Bupropion HCl (Wellbutrin Sr) 150 mg PO BID [facility] Last Admin: 08/26/18 08:47 Dose: 150 mg Admin: 08/25/18 20:13 Dose: 150 mg Admin: 08/25/18 11:39 Dose: 150 mg Admin: 08/24/18 21:08 Dose: 150 mg Cyclobenzaprine HCl (Flexeril) 5 mg PO TID PRN PRN Reason: Spasms Last Admin: 08/26/18 07:27 Dose: 5 mg Admin: 08/25/18 07:33 Dose: 5 mg Docusate Sodium (Colace) 100 mg PO BID [facility] Last Admin: 08/26/18 08:46 Dose: 100 mg Admin: 08/25/18 20:13 Dose: 100 mg Enoxaparin Sodium (Lovenox) 30 mg SUBCUT DAILY [facility] Last Admin: 08/26/18 08:47 Dose: 30 mg Admin: 08/25/18 11:38 Dose: 30 mg Fentanyl (Sublimaze) 50 mcg IVPUSH Q6H PRN PRN Reason: Pain (severe 7-10) Last Admin: 08/25/18 07:32 Dose: 50 mcg Admin: 08/25/18 01:30 Dose: 50 mcg Admin: 08/24/18 19:25 Dose: 50 mcg Admin: 08/24/18 13:23 Dose: 50 mcg Fentanyl Citrate (Fentanyl In Ns 20 Mcg/Ml 30 Ml Election Supervisor) 0 mcg IV ASDIRECTED PRN; Protocol PRN Reason: Pain Flavoxate HCl (Flavoxate Hcl) 100 mg PO QID PRN PRN Reason: PAIN Hydrochlorothiazide (Hydrochlorothiazide) 12.5 mg PO DAILY [facility] Last Admin: 08/26/18 08:46 Dose: 12.5 mg Admin: 08/25/18 11:39 Dose: 12.5 mg Hydroxyzine HCl (Atarax) 25 mg PO QID PRN PRN Reason: ITCH Last Admin: 08/25/18 21:49 Dose: 25 mg Admin: 08/24/18 21:51 Dose: 25 mg Levothyroxine Sodium 112 mcg/ (Levothyroxine Sodium 25 mcg) 137 mcg PO ACBREAKFAST [facility] Last Admin: 08/26/18 07:24 Dose: 137 mcg Admin: 08/25/18 07:35 Dose: 137 mcg Magnesium Hydroxide (Milk Of Magnesia) 30 ml PO DAILY PRN PRN Reason: Constipation Morphine Sulfate (Morphine) 2 mg IVPUSH Q1H PRN PRN Reason: Pain (severe 7-10) Last Admin: 08/24/18 21:08 Dose: 2 mg Admin: 08/24/18 17:09 Dose: 2 mg Admin: 08/24/18 14:36 Dose: 2 mg Admin: 08/24/18 12:20 Dose: 2 mg Ondansetron HCl (Zofran Odt) 4 mg PO Q8H PRN PRN Reason: Nausea Last Admin: 08/25/18 23:40 Dose: 4 mg Admin: 08/25/18 09:10 Dose: 4 mg Admin: 08/24/18 21:08 Dose: 4 mg Admin: 08/24/18 12:27 Dose: 4 mg Oxycodone/Acetaminophen (Percocet 325-5 Mg) 0 tab PO Q6H PRN PRN Reason: Pain Last Admin: 08/26/18 14:41 Dose: 1 tab Admin: 08/26/18 07:23 Dose: 2 tab Admin: 08/25/18 21:48 Dose: 1 tab Admin: 08/25/18 15:02 Dose: 2 tab Admin: 08/25/18 09:38 Dose: 2 tab Pantoprazole Sodium (Protonix) 40 mg PO ACBREAKFAST [facility] Last Admin: 08/26/18 07:25 Dose: 40 mg Admin: 08/25/18 07:36 Dose: 40 mg Potassium Chloride (Klor-Con M20) 20 meq PO BIDMEALS [facility] Last Admin: 08/26/18 08:48 Dose: 20 meq Scopolamine (Transderm-Scop) 1.5 mg TOP Q72H [facility] Stop: 08/27/18 06:00 Last Admin: 08/24/18 06:31 Dose: 1.5 mg - Assessment Assessment (Free Text/Narrative):: Better last night and today with pain control and confusion. K+ at 2.9, replacing with oral supplement. H/H stable.Dressing changed, incision looks good. - Plan Plan (Free Text/Narrative):: Continue OT/PT, determine if safe for home or if she will need SNF after therapy tomorrow. Replacing K+.
[2018-08-26] MEDS: Ondansetron 4 MG Tab.DIS PO PRN (16:30)
[2018-08-26] MEDS: atorvaSTATin 20 MG Tab PO SCH (20:34)
[2018-08-26] MEDS: amLODIPine 10 MG Tab PO SCH (20:35)
[2018-08-27] MEDS: Acetaminophen/HYDROcodone 325-5 MG Tab PO PRN ×2 (01:20→20:24)
[2018-08-27] MEDS: Acetaminophen/oxyCODONE 325-5 MG Tab PO PRN ×2 (07:22→13:36)
[2018-08-27] MEDS: Ondansetron 4 MG Tab.DIS PO PRN ×2 (08:35→16:31)
[2018-08-27] MEDS: Pantoprazole 40 MG Tab.CR PO SCH (08:36)
[2018-08-27] MEDS: Potassium Chloride 20 MEQ Tab.ER PO SCH (08:38)
[2018-08-27] MEDS: Docusate Sodium 100 MG Cap PO SCH ×2 (08:42→20:27)
[2018-08-27] MEDS: Nozin Nasal Sanitizer NASBOTH SCH ×2 (08:43→20:25)
[2018-08-27] MEDS: Hydrochlorothiazide 12.5 MG Cap PO SCH (08:46)
[2018-08-27] MEDS: Atenolol 25 MG Tab PO SCH (08:47)
[2018-08-27] MEDS: Enoxaparin 30 MG/0.3 ML Syringe SUBCUT SCH (08:49)
[2018-08-27] MEDS: buPROPion 150 MG Tab.SR PO SCH ×2 (08:49→20:28)
--- NOTE | 2018-08-27 12:28 | PCM.SURGPN ---
- General Info Date of Service: 08/27/18 Date of Surgery/Procedure: 08/24/18 POD#: 3 Post-Op Diagnosis: S/P right total knee Functional Status: Reports: Urinating - Review of Systems General: Reports: No Symptoms HEENT: Reports: No Symptoms Pulmonary: Reports: No Symptoms Cardiovascular: Reports: No Symptoms Gastrointestinal: Reports: Constipation, Nausea Genitourinary: Reports: No Symptoms Skin: Reports: No Symptoms Neurological: Reports: No Symptoms Psychiatric: Reports: No Symptoms Systems Review Comment:: Reports increased pain this morning and some nausea after pain meds, also reporting constipation. - Patient Data Vitals - Most Recent: Last Vital Signs Temp 36.2 C 08/27/18 10:43 Pulse 72 08/27/18 10:43 Resp 18 08/27/18 10:43 BP 105/54 L 08/27/18 10:43 Pulse Ox 99 08/27/18 10:43 Weight - Most Recent: 64.773 kg I&O - Last 24 Hours: Intake & Output 08/26/18 08/27/18 08/27/18 22:59 06:59 14:59 Intake Total 600 240 Output Total 800 950 250 Balance -800 -350 -10 Med Orders - Current: Current Medications Acetaminophen (Tylenol) 650 mg PO Q4H PRN PRN Reason: Pain/Fever Hydrocodone Bitart/Acetaminophen ([place] 325-5 Mg) 1 tab PO Q3H PRN PRN Reason: Pain (mild 1-3) Last Admin: 08/27/18 01:20 Dose: 1 tab Al Hydroxide/Mg Hydroxide (Mag-Al Plus) 30 ml PO Q2H PRN PRN Reason: Indigestion Amlodipine Besylate (Norvasc) 10 mg PO BEDTIME [facility] Last Admin: 08/26/18 20:35 Dose: 10 mg Atenolol (Tenormin) 25 mg PO DAILY [facility] Last Admin: 08/27/18 08:47 Dose: 25 mg Atorvastatin Calcium (Lipitor) 80 mg PO BEDTIME [facility] Last Admin: 08/26/18 20:34 Dose: 80 mg Bandage/Support Products ( Nasal Floorperson) 1 applic NASBOTH BID [facility] Stop: 08/31/18 21:01 Last Admin: 08/27/18 08:43 Dose: 1 swab Bupropion HCl (Wellbutrin Sr) 150 mg PO BID [facility] Last Admin: 08/27/18 08:49 Dose: 150 mg Cyclobenzaprine HCl (Flexeril) 5 mg PO TID PRN PRN Reason: Spasms Last Admin: 08/26/18 07:27 Dose: 5 mg Docusate Sodium (Colace) 100 mg PO BID [facility] Last Admin: 08/27/18 08:42 Dose: 100 mg Enoxaparin Sodium (Lovenox) 30 mg SUBCUT DAILY [facility] Last Admin: 08/27/18 08:49 Dose: 30 mg Fentanyl (Sublimaze) 50 mcg IVPUSH Q6H PRN PRN Reason: Pain (severe 7-10) Last Admin: 08/25/18 07:32 Dose: 50 mcg Fentanyl Citrate (Fentanyl In Ns 20 Mcg/Ml 30 Ml [employer]) 0 mcg IV ASDIRECTED PRN; Protocol PRN Reason: Pain Flavoxate HCl (Flavoxate Hcl) 100 mg PO QID PRN PRN Reason: PAIN Hydrochlorothiazide (Hydrochlorothiazide) 12.5 mg PO DAILY [facility] Last Admin: 08/27/18 08:46 Dose: 12.5 mg Hydroxyzine HCl (Atarax) 25 mg PO QID PRN PRN Reason: ITCH Last Admin: 08/25/18 21:49 Dose: 25 mg Levothyroxine Sodium 112 mcg/ (Levothyroxine Sodium 25 mcg) 137 mcg PO ACBREAKFAST [facility] Last Admin: 08/27/18 08:34 Dose: 137 mcg Magnesium Hydroxide (Milk Of Magnesia) 30 ml PO DAILY PRN PRN Reason: Constipation Last Admin: 08/27/18 10:55 Dose: 30 ml Morphine Sulfate (Morphine) 2 mg IVPUSH Q1H PRN PRN Reason: Pain (severe 7-10) Last Admin: 08/24/18 21:08 Dose: 2 mg Ondansetron HCl (Zofran Odt) 4 mg PO Q8H PRN PRN Reason: Nausea Last Admin: 08/27/18 08:35 Dose: 4 mg Oxycodone/Acetaminophen (Percocet 325-5 Mg) 0 tab PO Q6H PRN PRN Reason: Pain Last Admin: 08/27/18 07:22 Dose: 2 tab Pantoprazole Sodium (Protonix) 40 mg PO ACBREAKFAST [facility] Last Admin: 08/27/18 08:36 Dose: 40 mg Potassium Chloride (Potassium Chloride) 10 meq PO DAILY [facility] Discontinued Medications Acetaminophen (Tylenol Extra Strength) 1,000 mg PO ONETIME ONE Stop: 08/24/18 06:16 Last Admin: 08/24/18 06:32 Dose: 1,000 mg Amlodipine Besylate (Norvasc) 10 mg PO BEDTIME [facility] Atenolol (Tenormin) 25 mg PO DAILY [facility] Bandage/Support Products ( Nasal Floorperson) 1 applic NASBOTH BID [facility] Last Admin: 08/24/18 12:44 Dose: Not Given Bandage/Support Products ( Nasal Floorperson) 1 applic NASBOTH BID [facility] Stop: 08/31/18 21:01 Bupropion HCl (Wellbutrin Sr) 150 mg PO BID [facility] Enoxaparin Sodium (Lovenox) 30 mg SUBCUT DAILY [facility] Ephedrine Sulfate (Ephedrine Sulfate) Confirm Administered Dose 50 mg .ROUTE .STK-MED ONE Stop: 08/24/18 08:19 Fentanyl (Sublimaze) Confirm Administered Dose 100 mcg .ROUTE .STK-MED ONE Stop: 08/24/18 07:19 Fentanyl (Sublimaze) Confirm Administered Dose 100 mcg .ROUTE .STK-MED ONE Stop: 08/24/18 10:10 Gabapentin (Neurontin) 300 mg PO ONETIME ONE Stop: 08/24/18 06:16 Last Admin: 08/24/18 06:31 Dose: 300 mg Haloperidol Lactate (Haldol) 2 mg IVPUSH ONETIME ONE Stop: 08/24/18 22:20 Last Admin: 08/24/18 22:33 Dose: 2 mg Hydrochlorothiazide (Hydrochlorothiazide) 12.5 mg PO DAILY [facility] Cefazolin Sodium/Dextrose 2 gm (/ Premix) 50 mls @ 100 mls/hr IV ONETIME ONE Stop: 08/24/18 07:59 Last Admin: 08/24/18 07:37 Dose: 100 mls/hr Lactated Ringer's (Ringers, Lactated) 1,000 mls @ 75 mls/hr IV ASDIRECTED [facility] Last Admin: 08/24/18 07:29 Dose: 75 mls/hr Lactated Ringer's (Ringers, Lactated) Confirm Administered Dose 1,000 mls @ as directed .ROUTE .STK-MED ONE Stop: 08/24/18 10:16 Cefazolin Sodium 1 gm/ Sodium (Chloride) 50 mls @ 200 mls/hr IV Q8H [facility] Stop: 08/25/18 10:59 Last Admin: 08/24/18 14:35 Dose: Not Given Sodium Chloride (Normal Saline) 1,000 mls @ 125 mls/hr IV ASDIRECTED [facility] Last Admin: 08/25/18 07:25 Dose: 125 mls/hr Cefazolin Sodium/Dextrose 1 gm (/ Premix) 50 mls @ 100 mls/hr IV Q8H [facility] Stop: 08/25/18 14:59 Last Admin: 08/25/18 15:08 Dose: 100 mls/hr Midazolam HCl (Versed 1 Mg/Ml) Confirm Administered Dose 2 mg .ROUTE .STK-MED ONE Stop: 08/24/18 07:19 Midazolam HCl (Versed 1 Mg/Ml) Confirm Administered Dose 2 mg .ROUTE .STK-MED ONE Stop: 08/24/18 09:20 Non-Formulary Medication (Atorvastatin [Lipitor]) 80 mg PO BEDTIME [facility] Non-Formulary Medication (Flavoxate [Flavoxate Hcl]) 100 mg PO QID PRN PRN Reason: Pain Non-Formulary Medication (Hydroxyzine Pamoate [Vistaril]) 1 cap PO QID PRN PRN Reason: Itching Non-Formulary Medication (Levothyroxine Sodium [Synthroid]) 137 mcg PO DAILY [facility] Non-Formulary Medication (Omeprazole [Omeprazole]) 40 mg PO ACBREAKFAST [facility] Flavoxate Hcl 100 Mg 100 mg PO QID PRN PRN Reason: Pain Potassium Chloride (Klor-Con M20) 20 meq PO BIDMEALS [facility] Last Admin: 08/27/18 08:38 Dose: 20 meq Povidone Iodine (Betadine 10% Soln) Confirm Administered Dose 1 ml .ROUTE .STK- MED ONE Stop: 08/24/18 06:44 Last Admin: 08/24/18 10:00 Dose: 1 ml Propofol (Diprivan 20 Ml) Confirm Administered Dose 200 mg .ROUTE .STK-MED ONE Stop: 08/24/18 07:19 Propofol (Diprivan 20 Ml) Confirm Administered Dose 200 mg .ROUTE .STK-MED ONE Stop: 08/24/18 09:02 Scopolamine (Transderm-Scop) 1.5 mg TOP Q72H [facility] Stop: 08/27/18 06:00 Last Admin: 08/24/18 06:31 Dose: 1.5 mg - Exam Wound/Incisions: Healing Well, No Drainage General: Alert, Oriented HEENT: Pupils Equal Lungs: Clear to Auscultation, Normal Respiratory Effort Cardiovascular: Regular Rate, Regular Rhythm GI/Abdominal Exam: No Distention Extremities: Limited Range of Motion Skin: Warm, Dry, Intact Neurological: No New Focal Deficit Psy/Mental Status: Alert, Normal Affect, Normal Mood Physical Findings Comment:: moderate swelling in right leg, ecchymosis present, Vasquez's negative, getting close to 90 degrees of flexion - Problem List & Annotations (1) Anemia due to acute blood loss SNOMED Code(s): 529531055 Code(s): D62 - ACUTE POSTHEMORRHAGIC ANEMIA Status: Acute Current Visit: Yes Annotation/Comment:: secondary to surgical procedure (2) Status post total right knee replacement SNOMED Code(s): 4791416334172 Code(s): Z96.651 - PRESENCE OF RIGHT ARTIFICIAL KNEE JOINT Status: Acute Current Visit: Yes (3) At risk for falls SNOMED Code(s): 005248448 Code(s): Z91.81 - HISTORY OF FALLING Status: Chronic Current Visit: No (4) Primary osteoarthritis of right knee SNOMED Code(s): 940904050746165, 467714013383831 Code(s): M17.11 - UNILATERAL PRIMARY OSTEOARTHRITIS, RIGHT KNEE Status: Chronic Current Visit: No (5) Acute narcotic intoxication with delirium SNOMED Code(s): 862277033, 520801714 Code(s): F11.921 - OPIOID USE, UNSPECIFIED WITH INTOXICATION DELIRIUM Status: Acute Current Visit: Yes (6) Hypokalemia SNOMED Code(s): 57588269 Code(s): E87.6 - HYPOKALEMIA Status: Acute Current Visit: Yes - Problem List Review Problem List Initiated/Reviewed/Updated: Yes - My Orders Last 24 Hours: Active Orders 24 hr Category Date Time Status BASIC METABOLIC PANEL,BMP [CHEM] AM Lab 08/28/18 05:11 Ordered Potassium Chloride Med 08/28/18 09:00 Ordered 10 meq PO DAILY Medication Orders Acetaminophen (Tylenol) 650 mg PO Q4H PRN PRN Reason: Pain/Fever Hydrocodone Bitart/Acetaminophen ([place] 325-5 Mg) 1 tab PO Q3H PRN PRN Reason: Pain (mild 1-3) Last Admin: 08/27/18 01:20 Dose: 1 tab Admin: 08/25/18 05:54 Dose: 1 tab Admin: 08/24/18 22:33 Dose: 1 tab Admin: 08/24/18 19:23 Dose: 1 tab Admin: 08/24/18 15:52 Dose: 1 tab Admin: 08/24/18 12:37 Dose: 1 tab Al Hydroxide/Mg Hydroxide (Mag-Al Plus) 30 ml PO Q2H PRN PRN Reason: Indigestion Amlodipine Besylate (Norvasc) 10 mg PO BEDTIME [facility] Last Admin: 08/26/18 20:35 Dose: 10 mg Admin: 08/25/18 20:15 Dose: 10 mg Admin: 08/24/18 21:39 Dose: 10 mg Atenolol (Tenormin) 25 mg PO DAILY [facility] Last Admin: 08/27/18 08:47 Dose: 25 mg Admin: 08/26/18 08:48 Dose: 25 mg Admin: 08/25/18 11:39 Dose: 25 mg Atorvastatin Calcium (Lipitor) 80 mg PO BEDTIME [facility] Last Admin: 08/26/18 20:34 Dose: 80 mg Admin: 08/25/18 20:14 Dose: 80 mg Admin: 08/24/18 21:08 Dose: 80 mg Bandage/Support Products ( Nasal Floorperson) 1 applic NASBOTH BID [facility] Stop: 08/31/18 21:01 Last Admin: 08/27/18 08:43 Dose: 1 swab Admin: 08/26/18 20:34 Dose: 1 swab Admin: 08/26/18 08:47 Dose: 1 swab Admin: 08/25/18 20:13 Dose: 1 swab Admin: 08/25/18 09:44 Dose: 1 swab Admin: 08/24/18 21:07 Dose: 1 swab Bupropion HCl (Wellbutrin Sr) 150 mg PO BID [facility] Last Admin: 08/27/18 08:49 Dose: 150 mg Admin: 08/26/18 20:36 Dose: 150 mg Admin: 08/26/18 08:47 Dose: 150 mg Admin: 08/25/18 20:13 Dose: 150 mg Admin: 08/25/18 11:39 Dose: 150 mg Admin: 08/24/18 21:08 Dose: 150 mg Cyclobenzaprine HCl (Flexeril) 5 mg PO TID PRN PRN Reason: Spasms Last Admin: 08/26/18 07:27 Dose: 5 mg Admin: 08/25/18 07:33 Dose: 5 mg Docusate Sodium (Colace) 100 mg PO BID [facility] Last Admin: 08/27/18 08:42 Dose: 100 mg Admin: 08/26/18 20:34 Dose: 100 mg Admin: 08/26/18 08:46 Dose: 100 mg Admin: 08/25/18 20:13 Dose: 100 mg Enoxaparin Sodium (Lovenox) 30 mg SUBCUT DAILY [facility] Last Admin: 08/27/18 08:49 Dose: 30 mg Admin: 08/26/18 08:47 Dose: 30 mg Admin: 08/25/18 11:38 Dose: 30 mg Fentanyl (Sublimaze) 50 mcg IVPUSH Q6H PRN PRN Reason: Pain (severe 7-10) Last Admin: 08/25/18 07:32 Dose: 50 mcg Admin: 08/25/18 01:30 Dose: 50 mcg Admin: 08/24/18 19:25 Dose: 50 mcg Admin: 08/24/18 13:23 Dose: 50 mcg Fentanyl Citrate (Fentanyl In Ns 20 Mcg/Ml 30 Ml [employer]) 0 mcg IV ASDIRECTED PRN; Protocol PRN Reason: Pain Flavoxate HCl (Flavoxate Hcl) 100 mg PO QID PRN PRN Reason: PAIN Hydrochlorothiazide (Hydrochlorothiazide) 12.5 mg PO DAILY [facility] Last Admin: 08/27/18 08:46 Dose: 12.5 mg Admin: 08/26/18 08:46 Dose: 12.5 mg Admin: 08/25/18 11:39 Dose: 12.5 mg Hydroxyzine HCl (Atarax) 25 mg PO QID PRN PRN Reason: ITCH Last Admin: 08/25/18 21:49 Dose: 25 mg Admin: 08/24/18 21:51 Dose: 25 mg Levothyroxine Sodium 112 mcg/ (Levothyroxine Sodium 25 mcg) 137 mcg PO ACBREAKFAST [facility] Last Admin: 08/27/18 08:34 Dose: 137 mcg Admin: 08/26/18 07:24 Dose: 137 mcg Admin: 08/25/18 07:35 Dose: 137 mcg Magnesium Hydroxide (Milk Of Magnesia) 30 ml PO DAILY PRN PRN Reason: Constipation Last Admin: 08/27/18 10:55 Dose: 30 ml Morphine Sulfate (Morphine) 2 mg IVPUSH Q1H PRN PRN Reason: Pain (severe 7-10) Last Admin: 08/24/18 21:08 Dose: 2 mg Admin: 08/24/18 17:09 Dose: 2 mg Admin: 08/24/18 14:36 Dose: 2 mg Admin: 08/24/18 12:20 Dose: 2 mg Ondansetron HCl (Zofran Odt) 4 mg PO Q8H PRN PRN Reason: Nausea Last Admin: 08/27/18 08:35 Dose: 4 mg Admin: 08/26/18 16:30 Dose: 4 mg Admin: 08/25/18 23:40 Dose: 4 mg Admin: 08/25/18 09:10 Dose: 4 mg Admin: 08/24/18 21:08 Dose: 4 mg Admin: 08/24/18 12:27 Dose: 4 mg Oxycodone/Acetaminophen (Percocet 325-5 Mg) 0 tab PO Q6H PRN PRN Reason: Pain Last Admin: 08/27/18 07:22 Dose: 2 tab Admin: 08/26/18 20:41 Dose: 1 tab Admin: 08/26/18 14:41 Dose: 1 tab Admin: 08/26/18 07:23 Dose: 2 tab Admin: 08/25/18 21:48 Dose: 1 tab Admin: 08/25/18 15:02 Dose: 2 tab Admin: 08/25/18 09:38 Dose: 2 tab Pantoprazole Sodium (Protonix) 40 mg PO ACBREAKFAST [facility] Last Admin: 08/27/18 08:36 Dose: 40 mg Admin: 08/26/18 07:25 Dose: 40 mg Admin: 08/25/18 07:36 Dose: 40 mg Potassium Chloride (Potassium Chloride) 10 meq PO DAILY [facility] - Assessment Assessment (Free Text/Narrative):: Walking limited today, only 78 feet this am. Nausea may be due to K+ supplement , will decrease and check K+ in am. - Plan Plan (Free Text/Narrative):: Compression wrap for right leg, continue PT/OT, recheck K+ and Na+ in AM. Hopefully can go home tomorrow with Home Health.
[2018-08-27] MEDS: Cyclobenzaprine 10 MG Tab PO PRN (14:57)
[2018-08-27] MEDS: Acetaminophen 325 MG Tab PO PRN (17:20)
[2018-08-27] MEDS ORDERED: Naproxen 250 MG Tab PO SCH (18:15)
[2018-08-27] MEDS: atorvaSTATin 20 MG Tab PO SCH (20:27)
[2018-08-27] MEDS: amLODIPine 10 MG Tab PO SCH (20:28)
[2018-08-28] MEDS: Acetaminophen 325 MG Tab PO PRN (00:46)
[2018-08-28] MEDS: Acetaminophen/HYDROcodone 325-5 MG Tab PO PRN ×2 (00:46→06:48)
[2018-08-28] MEDS ORDERED: Acetaminophen/HYDROcodone 325-5 MG Tab PO PRN (07:08)
[2018-08-28] MEDS ORDERED: Potassium Chloride 10 MEQ Cap.ER PO SCH (09:00)
[2018-08-28] MEDS ORDERED: Naproxen 250 MG Tab PO SCH (09:00)
[2018-08-28] MEDS: Nozin Nasal Sanitizer NASBOTH SCH (09:05)
[2018-08-28] MEDS: Enoxaparin 30 MG/0.3 ML Syringe SUBCUT SCH (09:06)
[2018-08-28] MEDS: Pantoprazole 40 MG Tab.CR PO SCH (09:08)
[2018-08-28] MEDS: Docusate Sodium 100 MG Cap PO SCH (09:08)
[2018-08-28] MEDS: Hydrochlorothiazide 12.5 MG Cap PO SCH (09:08)
[2018-08-28] MEDS: buPROPion 150 MG Tab.SR PO SCH (09:09)
[2018-08-28] MEDS: Atenolol 25 MG Tab PO SCH (09:10)
[2018-08-28] MEDS: Ondansetron 4 MG Tab.DIS PO PRN (09:14)
[2018-08-28] MEDS ORDERED: Potassium Chloride Riders 40 MEQ in Premix Bag 1 BAG IV ONE (09:37)
[2018-08-28] MEDS ORDERED: Lactated Ringers 1,000 ML IV SCH (09:45)
[2018-08-28] MEDS ORDERED: Magnesium Citrate Solution 296 ML Bottle PO ONE (10:30)
[2018-08-28] MEDS: Potassium Chloride 20 MEQ, Lidocaine 1% 2 ML in Sodium Chloride 0.9% 100 ML IV SCH ×2 (11:39→13:46)
[2018-08-28] MEDS: Potassium Chloride 10 MEQ Cap.ER PO SCH ×2 (13:00→17:32)
[2018-08-28 14:42] VITALS: BP 105/45
== END 2018-08-28 18:26 | disposition home health service (06) | DRG 470 ==
LOC: JP.SDS 06:09 → UNDOADMIN 06:09 → JP.SDSSCHI 06:09 → EDSTATUS 07:30 → JP.MS 10:43 → JP.SDSSCHI 12:16 → JP.MS 12:16 → JP.SDS 08-25 12:27 → JP.MS 08-25 12:29 → UNDODISIN 08-28 18:26
PROVIDERS: ADMIT Specialist; ATTEND Specialist
PROC: 0SRC0J9 Replacement of Right Knee Joint with Synthetic Substitute, Cemented, Open Approach (ICD-10-PCS; principal; 2018-08-24)
DX: M17.11 Unilateral primary osteoarthritis, right knee (principal); F11.921 Opioid use, unspecified with intoxication delirium; D62 Acute posthemorrhagic anemia; I12.9 Hypertensive chronic kidney disease with stage 1 through stage 4 chronic kidney disease, or unspecified chronic kidney disease; N18.2 Chronic kidney disease, stage 2 (mild); M21.061 Valgus deformity, not elsewhere classified, right knee; E03.9 Hypothyroidism, unspecified; F32.9 Major depressive disorder, single episode, unspecified; E78.5 Hyperlipidemia, unspecified; M54.9 Dorsalgia, unspecified; F11.90 Opioid use, unspecified, uncomplicated; R32 Unspecified urinary incontinence; Z96.641 Presence of right artificial hip joint; Z90.710 Acquired absence of both cervix and uterus; Z86.11 Personal history of tuberculosis; Z88.8 Allergy status to other drugs, medicaments and biological substances; Z91.048 Other nonmedicinal substance allergy status; G89.29 Other chronic pain; E87.6 Hypokalemia; Z91.81 History of falling
CPT/HCPCS: 27447; 36415 ×2; 73560 ×2; 80053; 85027 ×2; 94762; 97110 ×2; 97112 ×2; 97162; 97530; 97535; A9270 ×26; C1713 ×2; C1776 ×8; J0690 ×4; J1630; J1650; J2250 ×2; J2270 ×4; J2704 ×2; J3010 ×6; J7030 ×3; J7120 ×2; 80048; 84132; 97116-GP; 97140-GP; 97165-GO; J2001; J3480

== ENCOUNTER 2022-07-19 17:44 | Emergency (ER) | payer MEDICARE ==
[2022-07-19] MEDS ORDERED: Metoclopramide 10 MG/2 ML SDV IVPUSH ONE (17:47)
[2022-07-19] MEDS ORDERED: Sodium Chloride 0.9% 10 ML Syringe FLUSH PRN (17:47)
[2022-07-19 17:54] VITALS: BP 151/67; PULSE 67
[2022-07-19 18:24] LABS: ESTIMATED GFR 64 mL/min (>60)
== END 2022-07-19 19:27 | disposition home or self-care (01) ==
LOC: JP.ED 17:44
DX: S06.0X0A Concussion without loss of consciousness, initial encounter (principal); I12.9 Hypertensive chronic kidney disease with stage 1 through stage 4 chronic kidney disease, or unspecified chronic kidney disease; E11.22 Type 2 diabetes mellitus with diabetic chronic kidney disease; N18.2 Chronic kidney disease, stage 2 (mild); E78.5 Hyperlipidemia, unspecified; E03.9 Hypothyroidism, unspecified; E78.00 Pure hypercholesterolemia, unspecified; K21.9 Gastro-esophageal reflux disease without esophagitis; Z88.5 Allergy status to narcotic agent; Z88.8 Allergy status to other drugs, medicaments and biological substances; Z79.899 Other long term (current) drug therapy; W18.30XA Fall on same level, unspecified, initial encounter
CPT/HCPCS: 36415; 70450; 80053; 85025; 85610; 85730; 93005; 96374; 99284; J2765; J3490

== ENCOUNTER 2023-10-07 11:52 | Emergency (ER) | payer MEDICARE ==
[2023-10-07 12:45] LABS: BASOPHILS ABSOLUTE AUTO 0.03 K/uL (0.00-0.10); BASOPHILS PERCENT AUTO 0.3 % (0.1-1.3); EOSINOPHILS ABSOLUTE AUTO 0.24 K/uL (0.00-0.40); EOSINOPHILS PERCENT AUTO 2.4 % (0.0-5.4); HEMATOCRIT 40.1 % (34.3-46.0); HEMOGLOBIN 13.7 g/dL (11.2-15.5); IMMATURE GRAN ABSOLUTE AUTO 0.11 K/uL (0.00-0.23); IMMATURE GRAN PERCENT AUTO 1.1 % (0.0-0.7); LYMPHOCYTES ABSOLUTE AUTO 0.71 K/uL (0.8-3.3); MEAN CORPUSCULAR HEMOGLOBIN 27.4 pg (31.6-35.5); MEAN CORPUSCULAR HGB CONC 34.2 g/dL (31.6-35.5); MEAN CORPUSCULAR VOLUME 80.2 fL (81.4-99.0); MONOCYTES ABSOLUTE AUTO 0.76 K/uL (0.20-0.90); MONOCYTES PERCENT AUTO 7.5 % (3.3-12.6); NEUTROPHILS ABSOLUTE AUTO 8.33 K/uL (1.0-7.6); NEUTROPHILS PERCENT AUTO 81.7 % (40.0-78.1); PLATELET COUNT,PLT 165 K/uL (130-375); WHITE BLOOD CELL COUNT,WBC 10.2 K/uL (3.2-11.0)
[2023-10-07 12:58] LABS: ANION GAP 15.8 mmol/L (5.0-14.0); CALCIUM 8.6 mg/dL (8.5-10.1); CREATININE 0.8 mg/dL (0.6-1.0); EST CRCL DRUG DOSING (CG) 37.6 mL/min; MAGNESIUM 1.6 mg/dL (1.8-2.4); POTASSIUM,K 3.8 mmol/L (3.6-5.2)
[2023-10-07] MEDS: Sodium Chloride 0.9% 500 ML IV ONE ×2 (13:04→14:18)
[2023-10-07] MEDS: Magnesium Oxide 400 MG Tab PO ONE (14:14)
[2023-10-07] MEDS: Diltiazem 25 MG/5 ML SDV IVPUSH ONE ×3 (14:16→16:19)
[2023-10-07] MEDS: Metoprolol Tartrate 25 MG Tab PO ONE (15:25)
[2023-10-07 16:33] VITALS: BP 97/50; PULSE 109
== END 2023-10-07 19:15 ==
LOC: JP.ED 11:52
DX: I48.91 Unspecified atrial fibrillation (principal); I12.9 Hypertensive chronic kidney disease with stage 1 through stage 4 chronic kidney disease, or unspecified chronic kidney disease; N18.9 Chronic kidney disease, unspecified; K21.9 Gastro-esophageal reflux disease without esophagitis; E78.00 Pure hypercholesterolemia, unspecified; Z91.048 Other nonmedicinal substance allergy status; Z88.8 Allergy status to other drugs, medicaments and biological substances; Z88.2 Allergy status to sulfonamides; Z88.5 Allergy status to narcotic agent; Z79.899 Other long term (current) drug therapy; Z90.710 Acquired absence of both cervix and uterus
CPT/HCPCS: 36415; 80048; 83735; 84484; 85025; 93005; 96361; 96374; 96376; 99285; A9270; J3490; J7030; 93010; 99284

== ENCOUNTER 2023-10-11 00:04 | Inpatient (IN) | payer MEDICARE ==
[2023-10-11 00:45] LABS: BASOPHILS ABSOLUTE AUTO 0.03 K/uL (0.00-0.10); BASOPHILS PERCENT AUTO 0.2 % (0.1-1.3); EOSINOPHILS ABSOLUTE AUTO 0.07 K/uL (0.00-0.40); EOSINOPHILS PERCENT AUTO 0.4 % (0.0-5.4); HEMATOCRIT 39.2 % (34.3-46.0); HEMOGLOBIN 13.3 g/dL (11.2-15.5); IMMATURE GRAN ABSOLUTE AUTO 0.16 K/uL (0.00-0.23); IMMATURE GRAN PERCENT AUTO 0.9 % (0.0-0.7); LYMPHOCYTES ABSOLUTE AUTO 0.57 K/uL (0.8-3.3); MEAN CORPUSCULAR HEMOGLOBIN 27.3 pg (31.6-35.5); MEAN CORPUSCULAR HGB CONC 33.9 g/dL (31.6-35.5); MEAN CORPUSCULAR VOLUME 80.3 fL (81.4-99.0); MONOCYTES ABSOLUTE AUTO 0.57 K/uL (0.20-0.90); NEUTROPHILS ABSOLUTE AUTO 17.37 K/uL (1.0-7.6); NEUTROPHILS PERCENT AUTO 92.5 % (40.0-78.1); PLATELET COUNT,PLT 180 K/uL (130-375); RED BLOOD CELL COUNT 4.88 M/uL (3.77-5.24); WHITE BLOOD CELL COUNT,WBC 18.8 K/uL (3.2-11.0)
[2023-10-11 00:52] LABS: APPEARANCE,URINE CLEAR (CLEAR); BILIRUBIN,URINE NEGATIVE (NEGATIVE); COLOR,URINE YELLOW (YELLOW); GLUCOSE,URINE NEGATIVE (NEGATIVE); KETONES,URINE NEGATIVE (NEGATIVE); LEUKOCYTE ESTERASE,URINE NEGATIVE (NEGATIVE); NITRITE,URINE NEGATIVE (NEGATIVE); OCCULT BLOOD,URINE NEGATIVE (NEGATIVE); PH,URINE 5.5 (5.0-8.0); PROTEIN,URINE NEGATIVE (NEGATIVE); UROBILINOGEN,URINE 0.2 EU/dL (0.2-1.0)
[2023-10-11 00:53] LABS: PROTHROMBIN TIME 10.5 sec (9.2-10.6)
[2023-10-11 00:58] LABS: AMORPHOUS SEDIMENT,URINE NOT SEEN; BACTERIA,URINE FEW; EPITHELIAL CELLS,URINE RARE; MUCUS,URINE NOT SEEN; RBC,URINE 0-5 (0-5); WBC,URINE 0-5 (0-5)
[2023-10-11 01:05] LABS: A/G RATIO 0.7 (1.2-2.2); ALANINE AMINOTRANSFERASE,ALT 32 U/L (12-78); ALBUMIN 2.7 g/dL (3.4-5.0); ALKALINE PHOSPHATASE 95 U/L (46-116); ANION GAP 15.4 mmol/L (5.0-14.0); ASPARTATE AMNIOTRANSFERASE,AST 25 U/L (15-37); BILIRUBIN TOTAL 0.7 mg/dL (0.2-1.0); BLOOD UREA NITROGEN,BUN 29 mg/dL (7-18); CALCIUM 8.5 mg/dL (8.5-10.1); CARBON DIOXIDE,CO2 22 mmol/L (21-32); CHLORIDE,CL 103 mmol/L (100-108); EST CRCL DRUG DOSING (CG) 30.08 mL/min; ESTIMATED GFR 56 mL/min (>60); GLUCOSE RANDOM 140 mg/dL (74-106); MAGNESIUM 2.1 mg/dL (1.8-2.4); POTASSIUM,K 3.4 mmol/L (3.6-5.2); PROTEIN TOTAL,TP 6.6 g/dL (6.4-8.2); SODIUM,NA 137 mmol/L (140-148)
[2023-10-11] MEDS: Diltiazem 25 MG/5 ML SDV IVPUSH ONE (01:10)
[2023-10-11] MEDS: cefTRIAXone 2 GM in Sodium Chloride 0.9% 50 ML IV ONE (01:18)
[2023-10-11] MEDS: Sodium Chloride 0.9% 1,000 ML IV SCH ×3 (01:23→06:16)
[2023-10-11] MEDS: Sodium Chloride 0.9% 80 ML IV SCH (02:00)
[2023-10-11] MEDS: Iopamidol 612 MG/ML 100 ML Bottle IV PRN (02:01)
[2023-10-11] MEDS: Potassium Chloride 20 MEQ in Premix Bag 1 BAG IV ONE (02:37)
[2023-10-11] MEDS ORDERED: Doxycycline 100 MG in Sodium Chloride 0.9% 100 ML IV SCH (02:45)
[2023-10-11] MEDS ORDERED: Metoprolol Tartrate 5 MG in Sodium Chloride 0.9% 50 ML IV SCH (02:45)
[2023-10-11] MEDS: Metoprolol Tartrate 5 MG/5 ML SDV IVPUSH SCH (03:19)
[2023-10-11] MEDS: Doxycycline 100 MG in Sodium Chloride 0.9% 100 ML IV SCH (03:20)
[2023-10-11] MEDS: Metoprolol Tartrate 5 MG in Sodium Chloride 0.9% 50 ML IV SCH (05:04)
[2023-10-11 05:31] LABS: CALCIUM 7.7 mg/dL (8.5-10.1); CREATININE 0.8 mg/dL (0.6-1.0); EST CRCL DRUG DOSING (CG) 37.6 mL/min; POTASSIUM,K 4.2 mmol/L (3.6-5.2)
[2023-10-11 05:32] LABS: ANION GAP 13.2 mmol/L (5.0-14.0)
[2023-10-11] MEDS: Albuterol/Ipratropium 3.0-0.5 MG/3 ML Neb Soln NEB SCH (05:51)
[2023-10-11] MEDS: methylPREDNISolone Sodium Succinate 125 MG/2 ML SDV IVPUSH ONE (05:58)
[2023-10-11] MEDS: Pantoprazole 40 MG Tab.CR PO SCH (08:33)
[2023-10-11] MEDS: Levothyroxine 25 MCG Tab PO SCH (08:34)
[2023-10-11] MEDS: Levothyroxine 100 MCG Tab PO SCH (08:34)
[2023-10-11] MEDS: Enoxaparin 40 MG/0.4 ML Syringe SUBCUT SCH (08:34)
[2023-10-11] MEDS: Potassium Chloride 10 MEQ Cap.ER PO SCH (08:34)
[2023-10-11] MEDS: buPROPion 150 MG Tab.SR PO SCH (08:34)
[2023-10-11] MEDS: Hydrochlorothiazide 12.5 MG Cap PO SCH (08:35)
[2023-10-11] MEDS: Metoprolol Succinate 25 MG Tab.ER PO SCH (08:50)
[2023-10-11] MEDS: Nystatin Crm 15 GM Tube TOP SCH (08:51)
[2023-10-11] MEDS ORDERED: methylPREDNISolone Sodium Succinate 40 MG/1 ML SDV IVPUSH SCH (12:00)
[2023-10-11] MEDS: Acetaminophen/HYDROcodone 325-10 MG Tab PO PRN (20:59)
[2023-10-11] MEDS ORDERED: amLODIPine 5 MG Tab PO SCH (21:00)
[2023-10-11] MEDS: atorvaSTATin 20 MG Tab PO SCH (21:02)
[2023-10-11] MEDS: Metoprolol Tartrate 25 MG Tab PO SCH (22:07)
[2023-10-11] MEDS: cefTRIAXone 2 GM in Sodium Chloride 0.9% 50 ML IV SCH (23:54)
[2023-10-12 04:51] LABS: HEMATOCRIT 33.1 % (34.3-46.0); MEAN CORPUSCULAR HGB CONC 33.2 g/dL (31.6-35.5); MEAN CORPUSCULAR VOLUME 81.3 fL (81.4-99.0); RED BLOOD CELL COUNT 4.07 M/uL (3.77-5.24); WHITE BLOOD CELL COUNT,WBC 16.6 K/uL (3.2-11.0)
[2023-10-12] MEDS: Ondansetron 4 MG Tab.DIS PO PRN (05:15)
[2023-10-12 05:17] LABS: BLOOD UREA NITROGEN,BUN 20 mg/dL (7-18); CALCIUM 8.1 mg/dL (8.5-10.1); CARBON DIOXIDE,CO2 20 mmol/L (21-32); CHLORIDE,CL 108 mmol/L (100-108); CREATININE 0.7 mg/dL (0.6-1.0); ESTIMATED GFR 85 mL/min (>60); GLUCOSE RANDOM 128 mg/dL (74-106); POTASSIUM,K 3.2 mmol/L (3.6-5.2); SODIUM,NA 140 mmol/L (140-148)
[2023-10-12 05:19] LABS: ANION GAP 15.2 mmol/L (5.0-14.0)
[2023-10-12] MEDS: Furosemide 20 MG/2 ML VIAL IVPUSH ONE ×2 (05:33→22:18)
[2023-10-12] MEDS: LORazepam 0.5 MG Tab PO ONE (05:35)
[2023-10-12] MEDS: Metoprolol Succinate 25 MG Tab.ER PO ONE (09:28)
[2023-10-12] MEDS: Furosemide 40 MG/4 ML VIAL IVPUSH ONE (10:26)
[2023-10-12] MEDS: Potassium Chloride 20 MEQ Tab.ER PO ONE (13:47)
[2023-10-12] MEDS: Digoxin 125 MCG Tab PO ONE (14:42)
[2023-10-12] MEDS: Doxycycline 100 MG Cap PO SCH (20:08)
[2023-10-12] MEDS: LORazepam 0.5 MG Tab PO PRN ×2 (21:05→22:58)
[2023-10-12] MEDS: Metoprolol Tartrate 50 MG Tab PO ONE (22:20)
[2023-10-12] MEDS: Haloperidol Lactate 5 MG/ML SDV IVPUSH ONE (23:38)
[2023-10-13 05:03] LABS: HEMATOCRIT 35.2 % (34.3-46.0); HEMOGLOBIN 11.4 g/dL (11.2-15.5); MEAN CORPUSCULAR HEMOGLOBIN 26.4 pg (31.6-35.5); MEAN CORPUSCULAR HGB CONC 32.4 g/dL (31.6-35.5); MEAN CORPUSCULAR VOLUME 81.5 fL (81.4-99.0); RED BLOOD CELL COUNT 4.32 M/uL (3.77-5.24); WHITE BLOOD CELL COUNT,WBC 13.4 K/uL (3.2-11.0)
[2023-10-13 05:15] LABS: ANION GAP 8.4 mmol/L (5.0-14.0); CALCIUM 8.1 mg/dL (8.5-10.1); CREATININE 0.7 mg/dL (0.6-1.0); EST CRCL DRUG DOSING (CG) 42.97 mL/min; POTASSIUM,K 3.6 mmol/L (3.6-5.2)
[2023-10-13] MEDS: Sodium Chloride 0.9% 1,000 ML IV SCH (05:51)
[2023-10-13] MEDS: Haloperidol Lactate 5 MG/ML SDV IVPUSH PRN (09:00)
[2023-10-13] MEDS: Metoprolol Tartrate 25 MG Tab PO SCH (09:00)
[2023-10-13] MEDS: Iopamidol 755 Mg/ML 100 ML Bottle IV ONE (16:14)
[2023-10-13] MEDS: Sodium Chloride 0.9% 100 ML IV SCH (16:15)
[2023-10-13] MEDS: Apixaban 5 MG Tab PO SCH (17:31)
[2023-10-13] MEDS: Digoxin 500 MCG/2 ML Amp IVPUSH ONE (17:32)
[2023-10-13] MEDS: Docusate Sodium 100 MG Cap PO SCH (20:56)
[2023-10-14] MEDS: Benzonatate 100 MG Cap PO PRN (02:01)
[2023-10-14] MEDS: Codeine/guaiFENesin 10-100 MG/5 ML Syrup 5 ML Cup PO PRN (02:43)
[2023-10-14] MEDS: Sodium Chloride 0.9% 1,000 ML IV SCH (03:57)
[2023-10-14 05:49] LABS: HEMATOCRIT 34.9 % (34.3-46.0); HEMOGLOBIN 11.6 g/dL (11.2-15.5); MEAN CORPUSCULAR HGB CONC 33.2 g/dL (31.6-35.5); MEAN CORPUSCULAR VOLUME 81.4 fL (81.4-99.0); RED BLOOD CELL COUNT 4.29 M/uL (3.77-5.24); WHITE BLOOD CELL COUNT,WBC 10.1 K/uL (3.2-11.0)
[2023-10-14 06:14] LABS: ANION GAP 7.7 mmol/L (5.0-14.0); CALCIUM 8.2 mg/dL (8.5-10.1); CREATININE 0.6 mg/dL (0.6-1.0); DIGOXIN 0.68 ng/mL (0.90-2.00); EST CRCL DRUG DOSING (CG) 50.13 mL/min; MAGNESIUM 1.5 mg/dL (1.8-2.4); POTASSIUM,K 3.6 mmol/L (3.6-5.2)
[2023-10-14] MEDS: Magnesium Sulfate/Water 2 GM in Premix Bag 1 BAG IV SCH (08:25)
[2023-10-14] MEDS: Magnesium Oxide 400 MG Tab PO SCH (08:25)
[2023-10-14] MEDS: Digoxin 500 MCG/2 ML Amp IVPUSH ONE (14:34)
[2023-10-14] MEDS: Magnesium Hydroxide 400 MG/5 ML Susp 30 ML Cup PO PRN (20:15)
[2023-10-15] MEDS: Albuterol 0.083% 2.5 MG/3 ML Neb Soln NEB PRN (00:35)
[2023-10-15 06:34] LABS: DIGOXIN 0.92 ng/mL (0.90-2.00); MAGNESIUM 2.3 mg/dL (1.8-2.4)
[2023-10-15] MEDS: Metoprolol Tartrate 25 MG Tab PO SCH (08:38)
[2023-10-15] MEDS: Furosemide 20 MG/2 ML VIAL IVPUSH ONE (11:17)
[2023-10-15] MEDS: Digoxin 125 MCG Tab PO SCH (13:33)
[2023-10-16 05:14] LABS: CALCIUM 8.1 mg/dL (8.5-10.1); CREATININE 0.6 mg/dL (0.6-1.0); EST CRCL DRUG DOSING (CG) 50.13 mL/min
[2023-10-16] MEDS: Metoprolol Tartrate 25 MG Tab PO SCH (08:49)
[2023-10-16] MEDS: Diltiazem IR 30 MG Tab PO SCH (09:49)
[2023-10-16] MEDS: Furosemide 20 MG/2 ML VIAL IVPUSH ONE (14:05)
[2023-10-16] MEDS: Potassium Chloride 20 MEQ Tab.ER PO SCH (17:36)
[2023-10-16] MEDS: Cefdinir 300 MG Cap PO SCH (20:25)
[2023-10-17 05:17] LABS: CALCIUM 8.4 mg/dL (8.5-10.1); CREATININE 0.7 mg/dL (0.6-1.0); EST CRCL DRUG DOSING (CG) 42.97 mL/min; POTASSIUM,K 3.7 mmol/L (3.6-5.2)
[2023-10-17 05:22] LABS: ANION GAP 11.7 mmol/L (5.0-14.0)
[2023-10-17] MEDS ORDERED: Furosemide 40 MG/4 ML VIAL IVPUSH ONE (09:52)
[2023-10-17] MEDS: Diltiazem 120 MG Cap.CD PO SCH (10:16)
[2023-10-17] MEDS: Furosemide 20 MG/2 ML VIAL IVPUSH ONE (10:20)
[2023-10-17] MEDS: Metoprolol Succinate 50 MG Tab.ER PO SCH (12:19)
[2023-10-18 05:32] LABS: CALCIUM 8.4 mg/dL (8.5-10.1); CREATININE 0.8 mg/dL (0.6-1.0); EST CRCL DRUG DOSING (CG) 37.6 mL/min
[2023-10-18] MEDS: Furosemide 40 MG/4 ML VIAL IVPUSH ONE (08:58)
[2023-10-19 05:46] LABS: CALCIUM 8.8 mg/dL (8.5-10.1); CREATININE 0.8 mg/dL (0.6-1.0); EST CRCL DRUG DOSING (CG) 37.6 mL/min; POTASSIUM,K 4.2 mmol/L (3.6-5.2)
[2023-10-19 05:49] LABS: ANION GAP 12.2 mmol/L (5.0-14.0)
[2023-10-19] MEDS ORDERED: Sodium Phosphate,Monobasic/Sodium Phosphate,Dibasic Enema 133 ML Bottle RECTAL PRN (11:49)
[2023-10-19] MEDS: Bisacodyl 10 MG Supp RECTAL ONE (14:06)
[2023-10-19] MEDS: Furosemide 20 MG Tab PO SCH (15:42)
[2023-10-20] MEDS: Apixaban 5 MG Tab PO SCH (17:01)
[2023-10-20] MEDS: Diltiazem 120 MG Cap.CD PO SCH (20:44)
[2023-10-20] MEDS: Melatonin 3 MG Tab PO SCH (20:44)
[2023-10-21 12:06] VITALS: BP 90/63; PULSE 85
== END 2023-10-21 14:09 | DRG 193 ==
LOC: JP.ED 00:04 → JP.MS 02:52
PROVIDERS: ADMIT Nurse Practitioner; ATTEND Internal Medicine
PROC: 5A0935A Assistance with Respiratory Ventilation, Less than 24 Consecutive Hours, High Flow/Velocity Cannula (ICD-10-PCS; principal; 2023-10-11)
DX: J18.9 Pneumonia, unspecified organism (principal); I26.94 Multiple subsegmental thrombotic pulmonary emboli without acute cor pulmonale; K56.7 Ileus, unspecified; J96.01 Acute respiratory failure with hypoxia; I12.9 Hypertensive chronic kidney disease with stage 1 through stage 4 chronic kidney disease, or unspecified chronic kidney disease; F02.A11 Dementia in other diseases classified elsewhere, mild, with agitation; F02.A3 Dementia in other diseases classified elsewhere, mild, with mood disturbance; F02.A4 Dementia in other diseases classified elsewhere, mild, with anxiety; I48.91 Unspecified atrial fibrillation; Z66 Do not resuscitate; H91.90 Unspecified hearing loss, unspecified ear; H54.7 Unspecified visual loss; E78.00 Pure hypercholesterolemia, unspecified; K59.09 Other constipation; K21.9 Gastro-esophageal reflux disease without esophagitis; N18.9 Chronic kidney disease, unspecified; G89.29 Other chronic pain; M54.2 Cervicalgia; M19.90 Unspecified osteoarthritis, unspecified site; E03.9 Hypothyroidism, unspecified; Z96.659 Presence of unspecified artificial knee joint; Z96.649 Presence of unspecified artificial hip joint; E87.6 Hypokalemia; I08.8 Other rheumatic multiple valve diseases; G30.1 Alzheimer's disease with late onset; Z91.048 Other nonmedicinal substance allergy status; Z88.8 Allergy status to other drugs, medicaments and biological substances; Z88.2 Allergy status to sulfonamides; Z88.5 Allergy status to narcotic agent; Z79.899 Other long term (current) drug therapy; Z79.891 Long term (current) use of opiate analgesic; Z87.440 Personal history of urinary (tract) infections; Z87.81 Personal history of (healed) traumatic fracture; Z90.89 Acquired absence of other organs; Z90.710 Acquired absence of both cervix and uterus; Z98.890 Other specified postprocedural states; Z87.891 Personal history of nicotine dependence
CPT/HCPCS: 36415; 71045 ×2; 74177; 80053; 81001; 83605; 83690; 83735; 85025; 85610; 87040 ×2; 87077; 93005; 93010 ×2; 96361; 96365; 96375; 99285 ×2; J0696; J3480; J3490 ×3; J7030; Q9967; 71275; 71275-26; 80048; 80162; 84484; 85027; 93306; 94640; 97110-GP; 97116-GP; 97161-GP; 97165-GO; 97530-GP; 99223; 99233; 99239; A9270-GY; J1160; J1630; J1650; J1940; J2919; J3475; J7620; Q0162

== ENCOUNTER 2023-12-29 09:04 | Emergency (ER) | payer MEDICARE ==
[2023-12-29] MEDS ORDERED: Naloxone 0.4 MG/ML SDV IVPUSH PRN (12:06)
[2023-12-29] MEDS: HYDROmorphone 0.5 MG/0.5 ML Syringe IM ONE (12:30)
[2023-12-29] MEDS: Acetaminophen/HYDROcodone 325-5 MG Tab PO ONE (12:59)
[2023-12-29] MEDS: Acetaminophen/HYDROcodone 325-7.5 MG Tab PO ONE (12:59)
[2023-12-29 13:03] VITALS: PULSE 132
[2023-12-29 14:18] VITALS: BP 115/77
== END 2023-12-29 15:03 | disposition home or self-care (01) ==
LOC: JP.ED 09:04
DX: S52.022A Displaced fracture of olecranon process without intraarticular extension of left ulna, initial encounter for closed fracture (principal); S09.90XA Unspecified injury of head, initial encounter; E78.00 Pure hypercholesterolemia, unspecified; I12.9 Hypertensive chronic kidney disease with stage 1 through stage 4 chronic kidney disease, or unspecified chronic kidney disease; N18.9 Chronic kidney disease, unspecified; E03.9 Hypothyroidism, unspecified; Z90.710 Acquired absence of both cervix and uterus; Z79.899 Other long term (current) drug therapy; Z79.890 Hormone replacement therapy; Z88.5 Allergy status to narcotic agent; Z88.8 Allergy status to other drugs, medicaments and biological substances; Z88.2 Allergy status to sulfonamides; Z91.048 Other nonmedicinal substance allergy status; W19.XXXA Unspecified fall, initial encounter
CPT/HCPCS: 29125; 70450; 73080; 73502; 99284; A9270; 99283